=== PATIENT | male | born 1955 | race Caucasian/White ===

== ENCOUNTER 2017-12-22 14:08 | Inpatient (IN) | payer MEDICARE, OTHER ==
[2017-12-22] MEDS ORDERED: Metoprolol tartrate 1 mg/ml 5mL Amp IV STA (14:42)
--- NOTE | 2017-12-22 14:47 | ED Physician Chart ---
ED Chief Complaint/HPI - Patient Information Date Seen:: 12/22/17 Time Seen:: 14:30 Chief Complaint:: Agitation History of Present Illness:: pt presents with agitation and anxiety; pt denies SIs, trauma, H/As, S/T, neck pain, C/P, SOB, Abd. Pain, A/N/V/D/C, fever, chills, or urinary s/s Historian:: Patient, EMS Review:: Nurse's Note Reviewed, Old Chart Reviewed, EMS run form Reviewed ED Review of Systems - Review of Systems General/Constitutional: No fever, No chills, No weight loss, No weakness, No diaphoresis, No edema, No loss of appetite Skin: No skin lesions, No rash, No bruising Head: No headache, No light-headedness Eyes: No loss of vision, No pain, No diplopia ENT: No earache, No nasal drainage, No sore throat, No tinnitus Neck: No neck pain, No swelling, No thyromegaly, No stiffness, No mass noted Cardio Vascular: No chest pain, No palpitations, No PND, No orthopnea, No edema Pulmonary: No SOB, No cough, No sputum, No wheezing GI: No nausea, No vomiting, No diarrhea, No pain, No melena, No hematochezia, No constipation, No hematemesis G/U: No dysuria, No frequency, No hematuria, No nacturia Musculoskeletal: No bone or joint pain, No back pain, No muscle pain Endocrine: No polyuria, No polydipsia Psychiatric: Prior psych history, Depression, Anxiety, No suicidal ideation, No homicidal ideation, No auditory hallucination, No visual hallucination Hematopoietic: No bruising, No lymphadenopathy Allergic/Immuno: No urticaria, No angioedema Neurological: No syncope, No focal symptoms, No weakness, No paresthesia, No headache, No seizure, No dizziness, No confusion, No vertigo ED Past Medical History - Past Medical History Obtainable: Yes Past Medical History: HTN, Dyslipidemia Family History: HTN Social History: Non Smoker, No Alcohol, No Drug Use, Single, Care Facility Surgical History: None Psychiatricy History: Depression, Bipolar Medication: Reviewed ED Physical Exam - Physical Examination General/Constitutional: Awake, Well-developed, well-nourished, Alert, No distress, GCS 15, Non-toxic appearing, Ambulatory Head: Atraumatic Eyes: Lids, conjuctiva normal, PERRL, EOMI Skin: Nl inspection, No rash, No skin lesions, No ecchymosis, Well hydrated, No lymphadenopathy ENMT: External ears, nose nl, TM canals nl, Nasal exam nl, Lips, teeth, gums nl , Oropharynx nl, Tonsils nl Neck: Nontender, Full ROM w/o pain, No JVD, No nuchal rigidity, No bruit, No mass, No stridor Respiratory: Nl effort/Exclusion Other Respiratory comments:: Lungs: + Rales Cardio Vascular: No murmur, gallop, rubs, NL S1 S2, Carotid/Femoral/Distal pulses equal bilaterally Other Cardio Vascular comments:: Irregular Irregular Rhythm GI: No tenderness/rebounding/guarding, No organomegaly, No hernia, Normal BS's, Nondistended, No mass/bruits, No McBurney tenderness, Rectum exam nl : No CVA tenderness Extremities: No tenderness or effusion, Full ROM, normal strength in all extremities, No edema, Normal digits & nails Neuro/Psych: Alert/oriented, DTR's symmetric, Normal sensory exam, Normal motor strength, Judgement/insight normal, Mood normal, Normal gait, No focal deficits Misc: Normal back, No paraspinal tenderness ED Labs/Radiology/EKG Results - Lab Results Comments:: BNP: 1490; Troponin: 0.39; D-Dimer: 1240; Elevated LFTs - Radiology Results Comments:: CXR: CHF - EKG Interpretations EKG Time:: 14:31 Rate & Rhythm: 158; ST/Atrial Fibrillation Comments:: RBBB; non-specific st-t changes ED Septic Shock - . Is Septic Shock (SBP<90, OR Lactate>4 mmol\L) present?: No ED Reassessment (Disposition) - Reassessment Reassessment Condition:: Improved - Diagnosis Diagnosis:: Dx: Atrial Fibrillation; Cardiac Arrythmias; Tachyarythmias; Agitation; Anxiety Reaction; CHF; Myocardial Ischemia; Pulmonary Embolus; DVT; Coagulopathy; Hyponatremia - Aftercare/Follow up Instructions Aftercare/Follow-Up Instructions:: Counseled pt regarding lab results/diagnosis & need follow up, Counseled pt & family regarding lab results/diagnosis & need follow up - Patient Disposition Discharge/Transfer:: Acute Care w/in this hosp Accepting Physician:: Dr. Sánchez Time Called:: 1629 Time Responded:: 16:30 Admitted to:: ICU Spoke to:: Dr. Sánchez Admitting Medical Physician:: Dr. Sánchez Condition at Disposition:: Stable, Improved ED Discharge Plan - Patient Disposition Instructions: Psychosis
[2017-12-22] MEDS ORDERED: Metoprolol tartrate 1 mg/ml 5mL Amp IV ONE (15:11)
[2017-12-22 15:16] LABS: INR 1.66 (0.5-1.4); PROTHROMBIN TIME (TEST) 17.7 SECONDS (9.5-11.5)
[2017-12-22 15:18] LABS: ALB/GLOB RATIO 1.2 (1.0-1.8); ALBUMIN 3.6 gm/dL (4.2-5.5); ALKALINE PHOSPHATASE 75 U/L (34-104); BILIRUBIN,TOTAL 2.2 mg/dL (0.3-1.0); BUN - UREA NITROGEN 20 mg/dL (7-25); CARBON DIOXIDE 25.7 mEq/L (21.0-31.0); CHLORIDE 100 mEq/L (98-107); CHOLESTEROL 108 mg/dL (<200); CREATININE - SERUM 1.2 mg/dL (0.7-1.3); CREATININE KINASE 3237 U/L (30-223); GFR AFRICAN-AMERICAN > 60.0 ml/min (>90); GFR NON AFRICAN-AMERICAN > 60.0 ml/min; GLUCOSE 152 mg/dL (70-105); POTASSIUM SERUM 3.7 mEq/L (3.5-5.1); SGOT 138 U/L (13-39); SGPT/ALT 50 U/L (7-52); SODIUM SERUM 134 mEq/L (136-145); TOTAL PROTEIN,SERUM 6.7 gm/dL (6.0-8.3); TRIGLYCERIDES 96 mg/dL (<150)
[2017-12-22 15:24] LABS: HEMATOCRIT 48.1 % (41.0-60); HEMOGLOBIN 15.8 gm/dL (12-16); MEAN CELL VOLUME 91.2 fl (80-99); MEAN CORPUSCULAR HEMOGLOBIN 29.9 pg (26.0-30.0); MEAN CORPUSCULAR HGB CONC 32.8 pg (28.0-36.0); MEAN PLATELET VOLUME 10.1 fl; PLATELET COUNT 170 Th/cmm (150-400); RED BLOOD COUNT 5.27 Mil/cmm (4.30-5.70); RED CELL DISTRIBUTION WIDTH 13.4 % (11.5-20.0); WHITE BLOOD COUNT 8.9 Th/cmm (4.8-10.8)
[2017-12-22 15:51] LABS: DDIMER QUANT 1240 ng/mL (100-400); HDL -HIGH DENSITY LIPOPROTEIN 36 mg/dL (23-92)
[2017-12-22 15:55] LABS: MANUAL DIFF REQUIRED? YES
[2017-12-22 15:56] LABS: BAND NEUTROPHILE 0 % (0-10); BASOPHIL 0 % (0-3); EOSINOPHIL 1 % (0-5); LYMPHOCYTE 15 % (20-50); MONOCYTE 10 % (2-10); NEUTROPHILS 74 % (40-80); TOTAL CELLS COUNTED 100
[2017-12-22 16:06] LABS: ACETAMINOPHEN < 10.0 ug/mL (10.0-30.0); CHOLESTEROL 110 mg/dL (<200); HDL -HIGH DENSITY LIPOPROTEIN 37 mg/dL (23-92); TRIGLYCERIDES 97 mg/dL (<150)
[2017-12-22 16:31] LABS: SALICYLATES (ASPIRIN) < 25.0 mg/L (30.0-100.0)
[2017-12-22] MEDS ORDERED: IOHEXOL 350mgI/mL 150mL IV ONE (16:42)
[2017-12-22 19:18] LABS: URINE MICROSCOPIC INDICATED? YES; URINE SOURCE CLEAN C
[2017-12-22 19:27] LABS: URINE BLOOD LARGE (NEGATIVE); URINE GLUCOSE (UA) NEGATIVE (NEGATIVE); URINE KETONE NEGATIVE (NEGATIVE); URINE LEUKOCYTE ESTERASE SMALL (NEGATIVE); URINE NITRATE NEGATIVE (NEGATIVE); URINE PROTEIN 100 mg/dL (NEGATIVE)
[2017-12-22 19:46] LABS: URINE CLARITY SLIGHT CLOUDY (CLEAR); URINE COLOR YELLOW; URINE RBC 50-100 /hpf (0-5)
[2017-12-22 19:49] LABS: URINE BACTERIA FEW /hpf (NONE SEEN); URINE EPITHELIAL CELLS OCCASIONAL /lpf (FEW); URINE WBC 25-50 /hpf (0-5)
[2017-12-22 19:50] LABS: AMPHETAMINE URINE NEGATIVE (NEGATIVE); BARBITURATES URINE NEGATIVE (NEGATIVE); BENZODIAZEPINES QUAL URINE NEGATIVE (NEGATIVE); CANNABINOID THC NEGATIVE (NEGATIVE); COCAINE METABOLITE QUAL URINE NEGATIVE (NEGATIVE); METHADONE URINE NEGATIVE (NEGATIVE); METHAMPHETAMINES QUAL URINE NEGATIVE (NEGATIVE); OPIATES (MORPHINE) QUAL. URINE POSITIVE (NEGATIVE); PHENCYCLIDINE (PCP) URINE NEGATIVE (NEGATIVE); TRICYCLICS (TCA) QUAL. URINE NEGATIVE (NEGATIVE); URINE BILIRUBIN SMALL (NEGATIVE)
[2017-12-22 20:00] LABS: A1C % 8.1 % (4.0-6.0)
[2017-12-22] MEDS ORDERED: Magnesium Hydroxide (MOM) 30 mL UDC PO PRN (22:46)
[2017-12-22] MEDS: Sodium Chloride 0.9% 1,000 ML IV SCH (22:56)
[2017-12-23] MEDS: INSULIN ASPART SLIDING SCALE 100 UNITS/ML UNIT SUBQ SCH ×5 (00:19→23:27)
[2017-12-23 05:02] LABS: % BASOPHILS 0.4 % (0.0-2.0); % LYMPHOCYTES 20.1 % (20.0-50.0); % MONOCYTES 11.1 % (2.0-10.0); % NEUTROPHILS 65.4 % (40.0-80.0); EOSINOPHILE ABSOLUTE 0.2 Th/cmm (0.1-0.4); HEMATOCRIT 45.3 % (41.0-60); HEMOGLOBIN 14.8 gm/dL (12-16); LYMPHOCYTE ABSOLUTE 1.5 Th/cmm (1.5-3.0); MEAN CELL VOLUME 91.7 fl (80-99); MEAN CORPUSCULAR HEMOGLOBIN 29.9 pg (26.0-30.0); MEAN CORPUSCULAR HGB CONC 32.6 pg (28.0-36.0); MEAN PLATELET VOLUME 9.3 fl; MONOCYTE ABSOLUTE 0.9 Th/cmm (0.3-1.0); NEUTROPHILE ABSOLUTE 5.1 Th/cmm (1.8-8.0); PLATELET COUNT 187 Th/cmm (150-400); RED BLOOD COUNT 4.94 Mil/cmm (4.30-5.70); RED CELL DISTRIBUTION WIDTH 13.1 % (11.5-20.0); WHITE BLOOD COUNT 7.7 Th/cmm (4.8-10.8)
[2017-12-23 05:29] LABS: ALB/GLOB RATIO 1.2 (1.0-1.8); ALBUMIN 3.2 gm/dL (4.2-5.5); ALKALINE PHOSPHATASE 70 U/L (34-104); BILIRUBIN,TOTAL 1.4 mg/dL (0.3-1.0); BUN - UREA NITROGEN 18 mg/dL (7-25); CALCIUM SERUM 8.6 mg/dL (8.6-10.3); CARBON DIOXIDE 21.8 mEq/L (21.0-31.0); CHLORIDE 103 mEq/L (98-107); CREATININE - SERUM 1.1 mg/dL (0.7-1.3); GFR AFRICAN-AMERICAN > 60.0 ml/min (>90); GFR NON AFRICAN-AMERICAN > 60.0 ml/min; GLUCOSE 166 mg/dL (70-105); POTASSIUM SERUM 3.8 mEq/L (3.5-5.1); SGOT 118 U/L (13-39); SGPT/ALT 48 U/L (7-52); SODIUM SERUM 134 mEq/L (136-145); TOTAL PROTEIN,SERUM 5.9 gm/dL (6.0-8.3)
--- NOTE | 2017-12-23 08:16 | Diagnostic Imaging Report ---
CHEST X-RAY: AP view INDICATION: pain COMPARISON: None FINDINGS: Left chest wall pacer is noted with leads in the region right atrium and right ventricle. Left basal density is noted. Cardiomegaly is noted. The osseous structures are intact. IMPRESSION: Left basal density which may be due to a small left effusion. Pneumonia of the left lung base cannot be excluded. Cardiomegaly. Pacemaker noted.
--- NOTE | 2017-12-23 08:18 | Diagnostic Imaging Report ---
Bilateral lower extremity DVT study HISTORY: Pain COMPARISON: None Technique: Longitudinal and transverse sonographic images of the bilateral lower extremity veins were obtained with doppler analysis. FINDINGS: Patient was combative, limiting the examination. There was nonvisualization of the bilateral popliteal veins due to patient and combative. The remaining veins of bilateral lower extremity are patent with no evidence of DVT formation. IMPRESSION: The bilateral popliteal veins were not able to be imaged as patient was combative during this portion of the procedure. Otherwise no evidence of DVT within the bilateral lower extremity venous system.
[2017-12-23] MEDS: Multivitamin w/ Minerals Tab PO SCH (08:26)
--- NOTE | 2017-12-23 08:29 | Diagnostic Imaging Report ---
CT Chest PE study Indication: Shortness of breath rule out PE Comparison: Chest x-ray the same day, Technique: Axial images were obtained from the base of the neck to the upper abdomen, following administration of IV contrast, PE protocol. Multiplanar reconstructions were made. total DLP: 383, [id number] FINDINGS: Left chest wall pacemaker is noted with leads in the region of the right atrium and right ventricle. Streak artifacts from patient's pacemaker does limit the examination. There is no evidence of mediastinal lymphadenopathy. Cardiomegaly is noted with small to moderate pericardial effusion. No evidence of an aneurysm. There is no evidence of pulmonary embolus. Evaluation of the lungs demonstrates mild groundglass densities throughout the lungs with minimal left basal infiltrates . Trace right effusion right basal passive atelectatic and consolidative changes are noted. Mild chronic lung changes are also noted. The upper abdomen demonstrates a 2-cm left renal cyst. Nonspecific bilateral perinephric inflammatory changes are noted. Mild distended gallbladder is noted. Degenerative changes of the spine are noted. IMPRESSION: No evidence of a pulmonary embolus. Mild groundglass density lungs with minimal left basal infiltrates. Trace right pleural effusion with right basal passive atelectasis is noted. Please correlate clinically for possible mild CHF. Underlying pneumonia cannot be excluded. Cardiomegaly with small to moderate-sized pericardial effusion. A left chest wall pacemaker apparatus is also noted. Moderate atherosclerotic vascular disease. Reflux of intravenous contrast into the IVC which may be secondary heart failure. Please correlate with clinical findings. Left renal cyst. Nonspecific perinephric inflammatory changes. Mildly distended gallbladder. No radiopaque gallstones identified. Consider follow-up ultrasound if indicated.
[2017-12-23] MEDS ORDERED: Atorvastatin Calcium 10 MG TAB PO SCH (09:00)
[2017-12-23] MEDS ORDERED: Insulin Detemir 100 units/mL 10mL Vial SUBQ SCH (09:00)
--- NOTE | 2017-12-23 09:04 | History and Physical ---
History of Present Illness - HPI Chief Complaint: Agitation HPI: Patient was send to ER from SNF to be evaluated for agitation and be place in [place]/psy[place], but during ER evaluation was found A-fib, elevated troponin, BNP and D-dimers, sugesting a possible LA, Acute CHF, and possible PE. 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[employer]GER: Report: Seizure, Other (Hx of CVA) GI: Report: Other (Chron's disease) Psych: Report: Anxiety Rheumatologic: Report: No pertinent Hx Infectious Disease: Report: No Pertinent Hx Renal/: Report: Other (Chronic armas catheter use) Endocrine: Report: Diabetes Dermatology: Report: No Pertinent Hx - Past Surgical History Past Surgical History: No pertinent Hx Social History Smoke: No Alcohol: None Drugs: None Lives: Long Term Domestic Violence: Negative - Medications Home Medications: Home Medication Medication Instructions Recorded Type Acetaminophen [Tylenol Extra 500 mg PO TID PRN 12/22/17 History Strength] Acetaminophen [Tylenol] 650 mg PO Q6HR PRN 12/22/17 History Atorvastatin Calcium [Lipitor] 10 mg PO DAILY 12/22/17 History Dextran 70/Hypromellose 1 each OP QID PRN 12/22/17 History [Artificial Tears] Docusate Sodium [Colace] 100 mg PO BID 12/22/17 History Hydrocodone/APAP 5mg/325mg [[place] 1 tab PO Q6H PRN 12/22/17 History 5mg/325mg] Insulin Glargine, Recombinan 10 units SUBQ QAM 12/22/17 History [Lantus] Insulin Human Regular [NovoLIN R] 0 units SUBQ TID 12/22/17 History Magnesium Hydroxide [Milk of 30 ml PO DAILY PRN 12/22/17 History Magnesia] Multivitamin w/ Minerals 1 tab PO DAILY 12/22/17 History [Theragran M] Nitroglycerin 0.4 mg SL Q5MIN PRN 12/22/17 History PARoxetine [Paxil] 10 mg PO DAILY 12/22/17 History Promethazine [Phenergan] 1 tbs PO TID PRN 12/22/17 History Rivaroxaban [Xarelto] 10 mg PO DAILY 12/22/17 History Tamsulosin [Flomax] 0.4 mg PO HS 12/22/17 History - Allergies Allergies/Adverse Reactions: Allergies Allergy/AdvReac Type Severity Reaction Status Date / Time No Known Allergies Allergy Verified 12/22/17 15:08 Review of Systems - Review of Systems Constitutional: Report: Weakness Eyes: Report: No Significant ENT: Report: No Significant Respiratory: Report: Other (O2 desaturation) Cardiovascular: Report: Palpitations Gastrointestinal: Report: No Significant Genitourinary: Report: Other (Armas catheter ) Musculoskeletal: Report: Other (Muscle pain) Skin: Report: No Significant Neurological: Report: Weakness Physical Exam - Physical Exam HEENT: Report: Ears Nose Throat within normal limits Neck: Report: Within normal limits Cardiovascular Systems: Report: Irregular rhythm was noted Respiratory: Report: Rhonchi Abdomen: Report: Non-tender to palpation Back: Report: Inspection of back is within normal limits. Extremities: Report: Non-tender to palpation. Skin: Report: Color of skin is within normal limits, Warm, Dry Neuro/Psych: Report: Other (patient is anxious) - Lab Results All Lab Results last 24 hours: Laboratory Results - last 24 hr 12/22/17 12/22/17 12/22/17 14:50 14:50 14:50 WBC 8.9 RBC 5.27 Hgb 15.8 Hct 48.1 MCV 91.2 MCH 29.9 MCHC Differential 32.8 RDW 13.4 Plt Count 170 MPV 10.1 Neutrophils % Band Neutrophils % 0 Lymphocytes % Monocytes % Eosinophils % Basophils % Neutrophils (Manual) 74 Lymphocytes 15 L Monocytes 10 Eosinophils 1 Basophils 0 Target Cells PT 17.7 H INR 1.66 H D-Dimer 1240 H Sodium 134 L Potassium 3.7 Chloride 100 Carbon Dioxide 25.7 Anion Gap 12.0 BUN 20 Creatinine 1.2 Est GFR ( Amer) > 60.0 Est GFR (Non-Af Amer) > 60.0 BUN/Creatinine Ratio 16.7 Glucose 152 H Hemoglobin A1c % Calcium 9.0 Total Bilirubin 2.2 H AST 138 H ALT 50 Alkaline Phosphatase 75 Creatine Kinase 3237 H CK-MB (CK-2) 21.8 H Troponin I B-Natriuretic Peptide Total Protein 6.7 Albumin 3.6 L Globulin 3.1 Albumin/Globulin Ratio 1.2 Triglycerides 96 Cholesterol 108 LDL Cholesterol Direct 59 L HDL Cholesterol 36 TSH Urine Source Urine Color Urine Clarity Urine pH Ur Specific [place] Urine Protein Urine Glucose (UA) Urine Ketones Urine Blood Urine Nitrate Urine Bilirubin Urine Urobilinogen Ur Leukocyte Esterase Urine RBC Urine WBC Ur Epithelial Cells Urine Bacteria Salicylates Urine Opiates Screen Urine Methadone Screen Acetaminophen Ur Barbiturates Screen Ur Tricyclics Screen Ur Phencyclidine Scrn Amphetamines Screen U Methamphetamines Scrn U Benzodiazepines Scrn U Cocaine Metab Screen U Cannabinoids Screen Ethyl Alcohol 12/22/17 12/22/17 12/22/17 14:50 14:50 14:50 WBC RBC Hgb Hct MCV MCH MCHC Differential RDW Plt Count MPV Neutrophils % Band Neutrophils % Lymphocytes % Monocytes % Eosinophils % Basophils % Neutrophils (Manual) Lymphocytes Monocytes Eosinophils Basophils Target Cells PT INR D-Dimer Sodium Potassium Chloride Carbon Dioxide Anion Gap BUN Creatinine Est GFR ( Amer) Est GFR (Non-Af Amer) BUN/Creatinine Ratio Glucose Hemoglobin A1c % Calcium Total Bilirubin AST ALT Alkaline Phosphatase Creatine Kinase CK-MB (CK-2) Troponin I 0.39 H* B-Natriuretic Peptide 1490.0 H Total Protein Albumin Globulin Albumin/Globulin Ratio Triglycerides 97 Cholesterol 110 LDL Cholesterol Direct 60 L HDL Cholesterol 37 TSH Urine Source Urine Color Urine Clarity Urine pH Ur Specific [place] Urine Protein Urine Glucose (UA) Urine Ketones Urine Blood Urine Nitrate Urine Bilirubin Urine Urobilinogen Ur Leukocyte Esterase Urine RBC Urine WBC Ur Epithelial Cells Urine Bacteria Salicylates < 25.0 L Urine Opiates Screen Urine Methadone Screen Acetaminophen < 10.0 L Ur Barbiturates Screen Ur Tricyclics Screen Ur Phencyclidine Scrn Amphetamines Screen U Methamphetamines Scrn U Benzodiazepines Scrn U Cocaine Metab Screen U Cannabinoids Screen Ethyl Alcohol < 10 12/22/17 12/22/17 12/22/17 14:50 14:50 16:15 WBC RBC Hgb Hct MCV MCH MCHC Differential RDW Plt Count MPV Neutrophils % Band Neutrophils % Lymphocytes % Monocytes % Eosinophils % Basophils % Neutrophils (Manual) Lymphocytes Monocytes Eosinophils Basophils Target Cells PT INR D-Dimer Sodium Potassium Chloride Carbon Dioxide Anion Gap BUN Creatinine Est GFR ( Amer) Est GFR (Non-Af Amer) BUN/Creatinine Ratio Glucose Hemoglobin A1c % 8.1 H Calcium Total Bilirubin AST ALT Alkaline Phosphatase Creatine Kinase CK-MB (CK-2) Troponin I B-Natriuretic Peptide Total Protein Albumin Globulin Albumin/Globulin Ratio Triglycerides Cholesterol LDL Cholesterol Direct HDL Cholesterol TSH 4.06 Urine Source CLEAN C Urine Color YELLOW Urine Clarity SLIGHT CLOUDY Urine pH 8.0 Ur Specific [place] 1.010 Urine Protein 100 H Urine Glucose (UA) NEGATIVE Urine Ketones NEGATIVE Urine Blood LARGE H Urine Nitrate NEGATIVE Urine Bilirubin SMALL H Urine Urobilinogen 2.0 Ur Leukocyte Esterase SMALL H Urine RBC 50-100 H Urine WBC 25-50 H Ur Epithelial Cells OCCASIONAL Urine Bacteria FEW Salicylates Urine Opiates Screen Urine Methadone Screen Acetaminophen Ur Barbiturates Screen Ur Tricyclics Screen Ur Phencyclidine Scrn Amphetamines Screen U Methamphetamines Scrn U Benzodiazepines Scrn U Cocaine Metab Screen U Cannabinoids Screen Ethyl Alcohol 12/22/17 12/23/17 12/23/17 16:15 04:50 04:50 WBC 7.7 RBC 4.94 Hgb 14.8 Hct 45.3 MCV 91.7 MCH 29.9 MCHC Differential 32.6 RDW 13.1 Plt Count 187 MPV 9.3 Neutrophils % 65.4 Band Neutrophils % Lymphocytes % 20.1 Monocytes % 11.1 H Eosinophils % 3.0 Basophils % 0.4 Neutrophils (Manual) Lymphocytes Monocytes Eosinophils Basophils Target Cells PT INR D-Dimer Sodium 134 L Potassium 3.8 Chloride 103 Carbon Dioxide 21.8 Anion Gap 13.0 BUN 18 Creatinine 1.1 Est GFR ( Amer) > 60.0 Est GFR (Non-Af Amer) > 60.0 BUN/Creatinine Ratio 16.4 Glucose 166 H Hemoglobin A1c % Calcium 8.6 Total Bilirubin 1.4 H AST 118 H ALT 48 Alkaline Phosphatase 70 Creatine Kinase CK-MB (CK-2) Troponin I B-Natriuretic Peptide Total Protein 5.9 L Albumin 3.2 L Globulin 2.7 Albumin/Globulin Ratio 1.2 Triglycerides Cholesterol LDL Cholesterol Direct HDL Cholesterol TSH Urine Source Urine Color Urine Clarity Urine pH Ur Specific [place] Urine Protein Urine Glucose (UA) Urine Ketones Urine Blood Urine Nitrate Urine Bilirubin Urine Urobilinogen Ur Leukocyte Esterase Urine RBC Urine WBC Ur Epithelial Cells Urine Bacteria Salicylates Urine Opiates Screen POSITIVE H Urine Methadone Screen NEGATIVE Acetaminophen Ur Barbiturates Screen NEGATIVE Ur Tricyclics Screen NEGATIVE Ur Phencyclidine Scrn NEGATIVE Amphetamines Screen NEGATIVE U Methamphetamines Scrn NEGATIVE U Benzodiazepines Scrn NEGATIVE U Cocaine Metab Screen NEGATIVE U Cannabinoids Screen NEGATIVE Ethyl Alcohol 12/23/17 04:50 WBC RBC Hgb Hct MCV MCH MCHC Differential RDW Plt Count MPV Neutrophils % Band Neutrophils % Lymphocytes % Monocytes % Eosinophils % Basophils % Neutrophils (Manual) Lymphocytes Monocytes Eosinophils Basophils Target Cells PT INR D-Dimer Sodium Potassium Chloride Carbon Dioxide Anion Gap BUN Creatinine Est GFR ( Amer) Est GFR (Non-Af Amer) BUN/Creatinine Ratio Glucose Hemoglobin A1c % Calcium Total Bilirubin AST ALT Alkaline Phosphatase Creatine Kinase CK-MB (CK-2) Troponin I 0.29 H* D B-Natriuretic Peptide Total Protein Albumin Globulin Albumin/Globulin Ratio Triglycerides Cholesterol LDL Cholesterol Direct HDL Cholesterol TSH Urine Source Urine Color Urine Clarity Urine pH Ur Specific [place] Urine Protein Urine Glucose (UA) Urine Ketones Urine Blood Urine Nitrate Urine Bilirubin Urine Urobilinogen Ur Leukocyte Esterase Urine RBC Urine WBC Ur Epithelial Cells Urine Bacteria Salicylates Urine Opiates Screen Urine Methadone Screen Acetaminophen Ur Barbiturates Screen Ur Tricyclics Screen Ur Phencyclidine Scrn Amphetamines Screen U Methamphetamines Scrn U Benzodiazepines Scrn U Cocaine Metab Screen U Cannabinoids Screen Ethyl Alcohol - Assessment Assessment: Current Active Problems Problem Status Onset AGITATION AND DEPRESSION Acute Patient is awake, cam in no acute distres. Troponin improved, BNP continue high , Chest CT shows lung infiltration, No PE. Dx: A-Fib, LA, CHF exacerbation, Anxiety, pacemaker in place. - Plan Plan: Patient is in IV NS, Carvedilol, Xarelto, Captopril, Insulin sliding scale, Lasix, continue with SNF meds. Consult with Cardio and IM requested
[2017-12-23] MEDS: Sodium Chloride 0.9% 1,000 ML IV SCH (09:55)
[2017-12-23] MEDS: Levofloxacin 500mg/100mL 500 MG/100 ML BAG IV SCH (10:12)
--- NOTE | 2017-12-23 20:38 | Consultation ---
DATE OF CONSULTATION: 12/23/2017 PSYCHIATRIC CONSULTATION PHYSICIAN REQUESTING CONSULTATION: Dr. Sánchez. REASON FOR CONSULTATION: Agitation. HISTORY OF PRESENT ILLNESS: This patient is a 62-year-old male, resident of [facility]. Information obtained by directly interviewing the patient as well as reviewing the admission papers and they are reliable. This patient has been transferred from [facility] in view of his acute agitation. The patient has been seen in the Emergency Room and has been found to have atrial fibrillation and the patient has been currently admitted to the ICU for treatment of his atrial fibrillation and a psychiatric consultation is called to address the issue of the agitated behavior. Staff was spoken to. The patient is interviewed. The patient has been getting easily irritable and angry and is stating that the food is no good and he needs to get a couple of more extra puddings. The patient has been going on a tangent. Sleep and appetite prior to the hospitalization are reported to be poor. PAST PSYCHIATRIC HISTORY: Details are not known. MEDICAL HISTORY: Significant for the patient having hypertension, diabetes mellitus, Crohn's disease, seizure disorder and CVA in the past. The patient at this time is being treated for congestive heart failure and atrial fibrillation. SUBSTANCE ABUSE HISTORY: Details are not known. LEGAL PROBLEMS: None at this time. STRENGTHS AND ASSETS: The patient is motivated. The patient is very agitated at this time and is not able give much information. MENTAL STATUS EXAMINATION: The patient is a 62-year-old, looking older than stated age, superficially cooperative. Eye contact is poor. Mood is irritable. Affect is constricted. Insight and judgment is noted to be still impaired. Impulse control seems to be limited. The patient is screaming and yelling and asking for pudding all the time. The patient has no insight into his illness. Coping skills are noted to be extremely poor. The patient is getting easily agitated when I am trying to calm him down, that the staff are looking into this pudding. The patient is alert and aware that he is in the hospital, but has no insight into his illness. DIAGNOSTIC IMPRESSION: 1. Major depressive disorder by history. 1B. Rule out psychosis. PLAN: To continue the patient with the current medications and the use of lorazepam on a p.r.n. Once medically cleared, the patient is going to be possibly transferred to the Geropsychiatric Unit for further care. JOB# [id number]
[2017-12-24] MEDS: Sodium Chloride 0.9% 1,000 ML IV SCH ×2 (02:00→12:58)
[2017-12-24 05:11] LABS: MEAN PLATELET VOLUME 9.5 fl; RED BLOOD COUNT 4.64 Mil/cmm (4.30-5.70); WHITE BLOOD COUNT 9.7 Th/cmm (4.8-10.8)
[2017-12-24 05:24] LABS: % EOSINOPHILS 3.3 % (0.0-5.0); % LYMPHOCYTES 17.7 % (20.0-50.0); % MONOCYTES 10.5 % (2.0-10.0); % NEUTROPHILS 67.5 % (40.0-80.0); BASOPHILE ABSOLUTE 0.1 Th/cumm (0-0.2); EOSINOPHILE ABSOLUTE 0.3 Th/cmm (0.1-0.4); HEMATOCRIT 42.4 % (41.0-60); HEMOGLOBIN 13.8 gm/dL (12-16); LYMPHOCYTE ABSOLUTE 1.7 Th/cmm (1.5-3.0); MEAN CELL VOLUME 91.4 fl (80-99); MEAN CORPUSCULAR HEMOGLOBIN 29.8 pg (26.0-30.0); MEAN CORPUSCULAR HGB CONC 32.6 pg (28.0-36.0); NEUTROPHILE ABSOLUTE 6.6 Th/cmm (1.8-8.0); PLATELET COUNT 180 Th/cmm (150-400); RED CELL DISTRIBUTION WIDTH 13.3 % (11.5-20.0)
[2017-12-24 05:33] LABS: ALB/GLOB RATIO 1.2 (1.0-1.8); ALBUMIN 3.1 gm/dL (4.2-5.5); ALKALINE PHOSPHATASE 78 U/L (34-104); ANION GAP 11.8 (7.0-16.0); BILIRUBIN,TOTAL 0.9 mg/dL (0.3-1.0); BUN - UREA NITROGEN 15 mg/dL (7-25); CALCIUM SERUM 8.4 mg/dL (8.6-10.3); CARBON DIOXIDE 25.1 mEq/L (21.0-31.0); CHLORIDE 102 mEq/L (98-107); CREATININE - SERUM 1.3 mg/dL (0.7-1.3); GFR AFRICAN-AMERICAN > 60.0 ml/min (>90); GFR NON AFRICAN-AMERICAN 59.3 ml/min; MAGNESIUM 1.5 mg/dL (1.9-2.7); POTASSIUM SERUM 3.9 mEq/L (3.5-5.1); SGOT 115 U/L (13-39); SGPT/ALT 46 U/L (7-52); SODIUM SERUM 135 mEq/L (136-145); TOTAL PROTEIN,SERUM 5.7 gm/dL (6.0-8.3)
[2017-12-24 05:45] LABS: GLUCOSE 75 mg/dL (70-105)
[2017-12-24] MEDS: INSULIN ASPART SLIDING SCALE 100 UNITS/ML UNIT SUBQ SCH ×4 (06:13→23:50)
[2017-12-24] MEDS: Multivitamin w/ Minerals Tab PO SCH (08:19)
--- NOTE | 2017-12-24 08:26 | Consultation ---
DATE OF CONSULTATION: 12/24/[address] Garibay. HISTORY OF PRESENT ILLNESS: This is a 62-year-old male patient who came to the hospital because of agitation. The patient on admission was found to have atrial fibrillation, congestive heart failure, slightly elevated troponin level, and hence, the patient is admitted to ICU and Cardiology consult is requested. The patient has no complaint of chest pain. The patient does have some shortness of breath. PAST MEDICAL HISTORY: Atrial fibrillation, CVA with left-sided weakness, seizure disorder, Crohn's disease, old myocardial infarction, diabetes mellitus type 2, hypertension, and sick sinus syndrome with pacemaker. FAMILY HISTORY: Unremarkable. SOCIAL HISTORY: No history of smoking or alcohol abuse. ALLERGIES: No known allergies. PHYSICAL EXAMINATION: VITAL SIGNS: Blood pressure 110/70, pulse 120 regular, and respirations 20. HEAD: Normocephalic. No lumps or bumps. EYES: Pupils equal, reactive to light. Fundi show AV nicking, sclerae white, conjunctivae pink. NECK: Carotid 2+. Normal upstroke. JVD 10 cm above sternal angle. Thyroid not palpable. Lymph nodes not palpable. CHEST: Shows increased AP diameter. No kyphosis, scoliosis. LUNGS: Bilateral rales. Decreased breath sounds both the bases. HEART: PMI sixth intercostal space with lateral to midclavicular line. S1 irregular. S2, S3, S4, soft systolic murmur. ABDOMEN: Soft. Liver, spleen not palpable. No organomegaly. Bowel sounds active. NEUROLOGIC: The patient has left side weakness, upper and lower extremity. CLINICAL IMPRESSION: Congestive heart failure. We will do echocardiogram to evaluate left ventricular function, atrial fibrillation with rapid ventricular response, cerebrovascular accident with left-sided weakness, seizure disorder, chronic Crohn's disease, old myocardial infarction, diabetes mellitus type 2, and hypertension. PLAN: The patient to get echocardiogram, diuretics, we will start the patient on amiodarone as the patient's blood pressure is 100 systolic. JOB# [id number]
--- NOTE | 2017-12-24 08:35 | General Progress Note ---
Subjective - Review of Systems Service Date: 12/24/17 Subjective: I want food Objective - Results Result Diagrams: 12/24/17 04:45 12/24/17 04:45 Recent Labs: Laboratory Last Values WBC 9.7 Th/cmm (4.8-10.8) 12/24/17 04:45 RBC 4.64 Mil/cmm (4.30-5.70) 12/24/17 04:45 Hgb 13.8 gm/dL (12-16) 12/24/17 04:45 Hct 42.4 % (41.0-60) 12/24/17 04:45 MCV 91.4 fl (80-99) 12/24/17 04:45 MCH 29.8 pg (26.0-30.0) 12/24/17 04:45 MCHC Differential 32.6 pg (28.0-36.0) 12/24/17 04:45 RDW 13.3 % (11.5-20.0) 12/24/17 04:45 Plt Count 180 Th/cmm (150-400) 12/24/17 04:45 MPV 9.5 fl 12/24/17 04:45 Neutrophils % 67.5 % (40.0-80.0) 12/24/17 04:45 Band Neutrophils % 0 % (0-10) 12/22/17 14:50 Lymphocytes % 17.7 % (20.0-50.0) L 12/24/17 04:45 Monocytes % 10.5 % (2.0-10.0) H 12/24/17 04:45 Eosinophils % 3.3 % (0.0-5.0) 12/24/17 04:45 Basophils % 1.0 % (0.0-2.0) 12/24/17 04:45 Neutrophils (Manual) 74 % (40-80) 12/22/17 14:50 Lymphocytes 15 % (20-50) L 12/22/17 14:50 Monocytes 10 % (2-10) 12/22/17 14:50 Eosinophils 1 % (0-5) 12/22/17 14:50 Basophils 0 % (0-3) 12/22/17 14:50 Target Cells 12/22/17 14:50 PT 17.7 SECONDS (9.5-11.5) H 12/22/17 14:50 INR 1.66 (0.5-1.4) H 12/22/17 14:50 D-Dimer 1240 ng/mL (100-400) H 12/22/17 14:50 Sodium 135 mEq/L (136-145) L 12/24/17 04:45 Potassium 3.9 mEq/L (3.5-5.1) 12/24/17 04:45 Chloride 102 mEq/L (98-107) 12/24/17 04:45 Carbon Dioxide 25.1 mEq/L (21.0-31.0) 12/24/17 04:45 Anion Gap 11.8 (7.0-16.0) 12/24/17 04:45 BUN 15 mg/dL (7-25) 12/24/17 04:45 Creatinine 1.3 mg/dL (0.7-1.3) 12/24/17 04:45 Est GFR ( Amer) > 60.0 ml/min (>90) 12/24/17 04:45 Est GFR (Non-Af Amer) 59.3 ml/min 12/24/17 04:45 BUN/Creatinine Ratio 11.5 12/24/17 04:45 Glucose 75 mg/dL (70-105) D 12/24/17 04:45 POC Glucose 157 MG/DL (70 - 105) H 12/23/17 23:23 Hemoglobin A1c % 8.1 % (4.0-6.0) H 12/22/17 14:50 Calcium 8.4 mg/dL (8.6-10.3) L 12/24/17 04:45 Magnesium 1.5 mg/dL (1.9-2.7) L 12/24/17 04:45 Total Bilirubin 0.9 mg/dL (0.3-1.0) 12/24/17 04:45 AST 115 U/L (13-39) H 12/24/17 04:45 ALT 46 U/L (7-52) 12/24/17 04:45 Alkaline Phosphatase 78 U/L (34-104) 12/24/17 04:45 Creatine Kinase 3237 U/L (30-223) H 12/22/17 14:50 CK-MB (CK-2) 21.8 ng/mL (0.6-6.3) H 12/22/17 14:50 Troponin I 0.29 ng/mL (0.01-0.05) H* D 12/23/17 04:50 B-Natriuretic Peptide 827.0 pg/mL (5.0-100.0) H 12/24/17 04:45 Total Protein 5.7 gm/dL (6.0-8.3) L 12/24/17 04:45 Albumin 3.1 gm/dL (4.2-5.5) L 12/24/17 04:45 Globulin 2.6 gm/dL 12/24/17 04:45 Albumin/Globulin Ratio 1.2 (1.0-1.8) 12/24/17 04:45 Triglycerides 97 mg/dL (<150) 12/22/17 14:50 Cholesterol 110 mg/dL (<200) 12/22/17 14:50 LDL Cholesterol Direct 60 mg/dL (75-193) L 12/22/17 14:50 HDL Cholesterol 37 mg/dL (23-92) 12/22/17 14:50 TSH 4.06 uIU/ml (0.34-5.60) 12/22/17 14:50 Urine Source CLEAN C 12/22/17 16:15 Urine Color YELLOW 12/22/17 16:15 Urine Clarity SLIGHT CLOUDY (CLEAR) 12/22/17 16:15 Urine pH 8.0 (4.6 - 8.0) 12/22/17 16:15 Ur Specific [place] 1.010 (1.005-1.030) 12/22/17 16:15 Urine Protein 100 mg/dL (NEGATIVE) H 12/22/17 16:15 Urine Glucose (UA) NEGATIVE mg/dL (NEGATIVE) 12/22/17 16:15 Urine Ketones NEGATIVE mg/dL (NEGATIVE) 12/22/17 16:15 Urine Blood LARGE (NEGATIVE) H 12/22/17 16:15 Urine Nitrate NEGATIVE (NEGATIVE) 12/22/17 16:15 Urine Bilirubin SMALL (NEGATIVE) H 12/22/17 16:15 Urine Urobilinogen 2.0 E.U./dL (0.2 - 1.0) 12/22/17 16:15 Ur Leukocyte Esterase SMALL (NEGATIVE) H 12/22/17 16:15 Urine RBC 50-100 /hpf (0-5) H 12/22/17 16:15 Urine WBC 25-50 /hpf (0-5) H 12/22/17 16:15 Ur Epithelial Cells OCCASIONAL /lpf (FEW) 12/22/17 16:15 Urine Bacteria FEW /hpf (NONE SEEN) 12/22/17 16:15 Salicylates < 25.0 mg/L (30.0-100.0) L 12/22/17 14:50 Urine Opiates Screen POSITIVE (NEGATIVE) H 12/22/17 16:15 Urine Methadone Screen NEGATIVE (NEGATIVE) 12/22/17 16:15 Acetaminophen < 10.0 ug/mL (10.0-30.0) L 12/22/17 14:50 Ur Barbiturates Screen NEGATIVE (NEGATIVE) 12/22/17 16:15 Ur Tricyclics Screen NEGATIVE (NEGATIVE) 12/22/17 16:15 Ur Phencyclidine Scrn NEGATIVE (NEGATIVE) 12/22/17 16:15 Amphetamines Screen NEGATIVE (NEGATIVE) 12/22/17 16:15 U Methamphetamines Scrn NEGATIVE (NEGATIVE) 12/22/17 16:15 U Benzodiazepines Scrn NEGATIVE (NEGATIVE) 12/22/17 16:15 U Cocaine Metab Screen NEGATIVE (NEGATIVE) 12/22/17 16:15 U Cannabinoids Screen NEGATIVE (NEGATIVE) 12/22/17 16:15 Ethyl Alcohol < 10 mg/dL (0-10) 12/22/17 14:50 RPR NONREACTIVE (NONREACTIVE) 12/22/17 14:50 - Physical Exam Vitals and I&O: Vital Signs Temp 97.2 F 12/24/17 06:00 Pulse 120 12/24/17 08:19 Resp 20 12/24/17 06:00 BP 126/93 12/24/17 08:19 Pulse Ox 100 12/24/17 06:00 Intake & Output 12/23/17 12/24/17 12/24/17 18:59 06:59 18:59 Intake Total 1273.75 1300 Output Total 1350 800 Balance -76.25 500 Weight (lbs) 60.781 kg 60.781 kg Intake: Intake, IV Amount 923.75 1000 Levofloxacin 500mg/100mL 100 500 mg In 100 ml @ 100 mls/hr IV Q24HR COUNT INCLUDES THE [facility] Rx#: [id number] Sodium Chloride 0.9% 1, 823.75 1000 000 ml @ 75 mls/hr IV . [id number] COUNT INCLUDES THE [facility] Rx#:[id number] Oral 350 300 Output: Urine 1350 800 Other: # Bowel Movements 0 Weight Source Bedscale Bedscale Active Medications: Current Medications Acetaminophen (Tylenol) 650 mg PO Q6HR PRN PRN Reason: MILD PAIN Stop: 02/20/18 22:45 Acetaminophen/Hydrocodone Bitart ([place] 5mg/325mg) 1 tab PO Q6H PRN PRN Reason: PAIN Stop: 02/20/18 22:45 Amiodarone HCl (Cordarone) 200 mg PO BID COUNT INCLUDES THE [facility] Stop: 02/21/18 16:59 Last Admin: 12/24/17 08:18 Dose: 200 mg Aspirin (Ecotrin) 81 mg PO DAILY COUNT INCLUDES THE [facility] Stop: 02/21/18 09:59 Last Admin: 12/24/17 08:19 Dose: 81 mg Carvedilol (Coreg) 6.25 mg PO BID COUNT INCLUDES THE [facility] Stop: 02/21/18 09:59 Last Admin: 12/24/17 08:19 Dose: 6.25 mg Docusate Sodium (Colace) 100 mg PO BID COUNT INCLUDES THE [facility] Stop: 02/21/18 08:59 Last Admin: 12/24/17 08:19 Dose: 100 mg Furosemide (Lasix) 40 mg IVP DAILY COUNT INCLUDES THE [facility] Stop: 02/21/18 09:59 Last Admin: 12/24/17 08:19 Dose: 40 mg Sodium Chloride (Nacl 0.9%) 1,000 mls @ 75 mls/hr IV .[id number] COUNT INCLUDES THE [facility] Stop: 02/20/18 19:59 Last Admin: 12/24/17 02:00 Dose: 75 mls/hr Levofloxacin (Levaquin Pb) 500 mg in 100 mls @ 100 mls/hr IV Q24HR COUNT INCLUDES THE [facility] Stop: 02/21/18 09:59 Last Infusion: 12/23/17 11:15 Dose: Infused Insulin Aspart (Novolog Insulin Sliding Scale) 0 units SUBQ Q6HR COUNT INCLUDES THE [facility]; Protocol Stop: 02/21/18 00:00 Last Admin: 12/24/17 06:13 Dose: Not Given Insulin Detemir (Levemir Insulin) 10 units SUBQ QAM COUNT INCLUDES THE [facility]; Protocol Stop: 02/21/18 08:59 Last Admin: 12/23/17 08:37 Dose: 10 unit Lorazepam (Ativan) 1 mg PO Q1H PRN; Protocol PRN Reason: Agitation Stop: 02/20/18 20:37 Last Admin: 12/23/17 23:29 Dose: 1 mg Magnesium Hydroxide (Milk Of Magnesia) 30 ml PO DAILY PRN PRN Reason: BOWEL [employer]INTE[employer]CE Stop: 02/20/18 22:45 Rivaroxaban (Xarelto) 15 mg PO BID MARY Stop: 02/21/18 16:59 Last Admin: 12/24/17 08:18 Dose: 15 mg Tamsulosin HCl (Flomax) 0.4 mg PO HS MARY Stop: 02/21/18 20:59 Last Admin: 12/23/17 20:01 Dose: 0.4 mg General: Alert, Other (Confused, agitated at moments) HEENT: Atraumatic Neck: Supple Cardiovascular: Other (Tachicardic) Lungs: Clear to auscultation Abdomen: Bowel sounds, Soft Extremities: Other (Contraction of left arm, limited movement of lower extremities) Psych/Mental Status: Other (Patient is awake, agitated, screming,) Assessment/Plan - Problem List Patient Problems: All Active Problems AGITATION AND DEPRESSION (Acute) - Assessment Assessment: Current Active Problems Problem Status Onset AGITATION AND DEPRESSION Acute Patient is awake, cam in no acute distress. Troponin improved, BNP improving, Chest CT shows lung infiltration, No PE. Dx: A-Fib, CT, CHF exacerbation, Anxiety, pacemaker in place. - Plan Plan: Patient is in IV NS, Carvedilol, Xarelto, Captopril, Insulin sliding scale, Lasix, continue with SNF meds. Already seen by Cardiology and IM. Will continue to monitor.
--- NOTE | 2017-12-24 09:05 | Diagnostic Imaging Report ---
CHEST X-RAY: AP view INDICATION: CHF COMPARISON: 12/22/2017 FINDINGS: Exam is limited due to positioning and overlying external material. Left chest wall pacemaker is stable. Left basal density is noted. No evidence of CHF. Cardiomegaly is noted. IMPRESSION: Limited exam. No evidence of CHF. Left basal density suggestive of a small left effusion. Pneumonia of the left lung base cannot be excluded. Cardiomegaly.
[2017-12-24] MEDS ORDERED: Mag Sulfate 2gm/50mL Premix 2 GM/50 ML BAG IV ONE ×2 (09:07→14:51)
[2017-12-24] MEDS: Levofloxacin 500mg/100mL 500 MG/100 ML BAG IV SCH (09:10)
--- NOTE | 2017-12-24 10:11 | History & Physical ---
ADMIT DATE: 12/23/2017 REFERRING PHYSICIAN: Shay Sánchez M.D. REASON FOR CONSULT: AFib with RVR, elevated troponin level, CHF exacerbation, pneumonia, UTI. HISTORY OF PRESENT ILLNESS: The patient is a 62-year-old gentleman who presented from a long term with increased agitation. While in the ED, he was noted to be AFib with a rate around 150s, troponin level 0.39 and a BNP level of 1490. Other pertinent findings include a chest x-ray showing bilateral basal infiltrates/atelectasis, a UA is consistent with UTI and an elevated D-dimer. Given these findings, the patient has been admitted to the ICU for further management and care. The patient is asleep, but arousable, but is currently not able to provide me any medical history. PAST MEDICAL HISTORY: History of atrial fib/arrhythmia status post pacemaker placement, CAD, hypertension, seizure disorder, history of CVA, Crohn's disease, diabetes mellitus, BPH, and generalized muscle weakness. PAST SURGICAL HISTORY: Pacemaker placement, otherwise unknown. FAMILY HISTORY: Likely noncontributory to this admission. SOCIAL HISTORY: Unknown. He currently lives [facility]. ALLERGIES: NO KNOWN DRUG ALLERGIES. OUTPATIENT MEDICATIONS: Nitroglycerin 0.5 every 5 minutes p.r.n. for chest pain, Paxil 10 every day, Phenergan 1 teaspoon t.i.d. as needed for cough, Tylenol 500 mg t.i.d., Artificial Tears q.i.d., insulin sliding scale with NovoLog R, atorvastatin 10 every day, docusate sodium 100 b.i.d., [place] 5/325 q.6h. p.r.n. for severe pain, Lantus 10 units q.a.m., milk of magnesia 100 mL every day p.r.n., multivitamins every day, Xarelto 10 every day, Flomax 0.4. REVIEW OF SYSTEMS: A full review of systems was not able to be done given that the patient is mostly nonverbal at this time. PHYSICAL EXAMINATION: VITAL SIGNS: Temperature 97.6, pulse 128, BP 119/94, respirations 16, O2 sats 96%-97% on 2 liters. GENERAL: He is a well-developed, thin male, nontoxic appearing. He is asleep, but arousable, not able to answer any questions at this time. HEENT: Normocephalic, appears to be atraumatic. NECK: There is no JVD or LAD. CARDIOVASCULAR: Irregularly irregular rhythm. LUNGS: Scattered rales bilaterally. ABDOMEN: Soft, supple, nontender, nondistended, normoactive bowel sounds. EXTREMITIES: Lower extremities: There is 1+ pitting edema up to the mid shins. NEUROLOGIC: Full exam cannot be done, but there appears to be some contractures noted on the upper extremities. His cranial nerves appear to be within normal limits. LABORATORY DATA: On admission, white count 8.9, H and H 15/48 with a platelet count of 170. INR 1.6. Sodium 134, potassium 3.7, chloride 100, CO2 25, BUN 20, creatinine 1.2, glucose 152, hemoglobin A1c 8.1, calcium 9.0. AST 138, ALT 50, alkaline phosphatase 75. CPK 3237. Troponin 0.39. A followup troponin 0.29. BNP 1490, albumin 3.6. Cholesterol 110, LDL 60, HDL 37. TSH 4.06. UA shows positive for protein, large blood, small bilirubin, small leukocyte esterase, 50-100 RBC, 25-50 wbc. Urine tox was positive for opiates, otherwise within normal limits. Chest x-ray shows left basilar density, which may be due to small left effusion. Pneumonia of the left lung base cannot be excluded. There is also cardiomegaly and a pacemaker noted. CT angiogram of the abdomen and pelvis showed no evidence of PE. There is mild ground glass density in the left base consistent with infiltrates. Trace right pleural effusion with right basal passive atelectasis is also noted. There is cardiomegaly with [id number] size pericardial effusion. A left chest wall pacemaker is noted. Moderate atherosclerotic vascular disease. There is also reflux of intravenous contrast into the IVC, which may be secondary to heart failure. There is a left renal cyst. There is a nonspecific perinephric inflammatory changes. There is a mildly distended gallbladder. No radiopaque gallstones identified. There was also a lower extremity ultrasound done to rule out DVT, which was negative. EKG shows tachycardia at 158. IMPRESSION: 1. Atrial fibrillation with rapid ventricular response. 2. Elevated troponin, likely secondary to atrial fibrillation with rapid ventricular response, but given his history of CAD, will have to rule out acute coronary syndrome. 3. History of CAD/CHF with exacerbation. 4. Bilateral pneumonia/atelectasis. 5. Elevated D-dimer, which is nonspecific, likely secondary to the RVR, but it appears that there is no evidence of pulmonary embolism. 6. Urinary tract infection. 7. History of hypertension, currently out of control. 8. History of seizure disorder. 9. History of CVA. 10. History of type 2 diabetes. 11. History of Crohn's disease. 12. History of BPH. PLAN: The patient has been admitted to ICU for close observation. The patient will be monitored with troponins and CPKs and has been placed on aspirin 81 mg p.o. every day and will be kept on atorvastatin as well as Xarelto. The patient also has been placed on a beta-dereck (Coreg and MIREYA inhibitor) captopril. I will ask for blood cultures and urine C and S. In the interim, the patient will be placed on IV antibiotics for both UTI and pneumonia. Given his elevated BNP level, I will also start the patient on Lasix 40 mg IV daily and a cardiology consult will also be asked for management and care. JOB# [id number] JANNY
[2017-12-24] MEDS ORDERED: MAGNESIUM SULFATE IV ONE (10:15)
--- NOTE | 2017-12-24 16:13 | Cardiology ---
12/24/[address] Sánchez. PROCEDURE: Echocardiogram. M-MODE ECHOCARDIOGRAM: Mitral valve, anterior leaflet of mitral valve shows decreased excursion, EF velocity. Posterior leaflet of mitral valve shows decreased excursion. Left ventricular posterior wall shows increased thickness, decreased excursion. Interventricular septum shows increased thickness, decreased excursion, ejection fraction 40%. Left atrium normal. Aortic root shows normal dimension, normal excursion of aortic leaflets. CONCLUSION: Hypertrophy of the left ventricle, ejection fraction 40%. 2D ECHO: Long axis view shows hypertrophy of the left ventricle, ejection fraction 40%. Left atrium normal. Aortic root shows normal dimension, normal excursion of aortic leaflets. Short axis view of mitral valve normal. Short axis view of aortic valve normal. Apical four chamber view shows hypertrophy of the left ventricle, ejection fraction 40%. Left atrium normal. Right ventricular cavity, right atrium normal, no pericardial effusion. CONCLUSION: Hypertrophy of the left ventricle, ejection fraction 40%. Doppler study shows moderate aortic regurgitation. Right ventricular systolic pressure 30 mmHg. [facility]# [id number]
[2017-12-24] MEDS: Hydrocodone/APAP 5mg/325mg Tab PO PRN (21:58)
[2017-12-25 05:48] LABS: % BASOPHILS 0.4 % (0.0-2.0); % EOSINOPHILS 5.3 % (0.0-5.0); % LYMPHOCYTES 20.3 % (20.0-50.0); % MONOCYTES 12.3 % (2.0-10.0); % NEUTROPHILS 61.7 % (40.0-80.0); EOSINOPHILE ABSOLUTE 0.4 Th/cmm (0.1-0.4); HEMATOCRIT 44.4 % (41.0-60); HEMOGLOBIN 14.6 gm/dL (12-16); LYMPHOCYTE ABSOLUTE 1.5 Th/cmm (1.5-3.0); MEAN CORPUSCULAR HEMOGLOBIN 29.9 pg (26.0-30.0); MEAN CORPUSCULAR HGB CONC 32.8 pg (28.0-36.0); MEAN PLATELET VOLUME 9.3 fl; MONOCYTE ABSOLUTE 0.9 Th/cmm (0.3-1.0); NEUTROPHILE ABSOLUTE 4.5 Th/cmm (1.8-8.0); PLATELET COUNT 202 Th/cmm (150-400); RED BLOOD COUNT 4.88 Mil/cmm (4.30-5.70); RED CELL DISTRIBUTION WIDTH 13.4 % (11.5-20.0); WHITE BLOOD COUNT 7.3 Th/cmm (4.8-10.8)
[2017-12-25] MEDS: INSULIN ASPART SLIDING SCALE 100 UNITS/ML UNIT SUBQ SCH ×3 (06:00→17:32)
[2017-12-25 06:03] LABS: ALB/GLOB RATIO 1.2 (1.0-1.8); ALBUMIN 3.2 gm/dL (4.2-5.5); ANION GAP 9.6 (7.0-16.0); BILIRUBIN,TOTAL 0.9 mg/dL (0.3-1.0); CALCIUM SERUM 8.8 mg/dL (8.6-10.3); CARBON DIOXIDE 30.2 mEq/L (21.0-31.0); CREATININE - SERUM 1.6 mg/dL (0.7-1.3); GFR AFRICAN-AMERICAN 56.4 ml/min (>90); GFR NON AFRICAN-AMERICAN 46.6 ml/min; MAGNESIUM 2.3 mg/dL (1.9-2.7); POTASSIUM SERUM 3.8 mEq/L (3.5-5.1); TOTAL PROTEIN,SERUM 5.8 gm/dL (6.0-8.3)
[2017-12-25] MEDS: Multivitamin w/ Minerals Tab PO SCH (08:38)
[2017-12-25] MEDS: Sodium Chloride 0.9% 1,000 ML IV SCH ×2 (08:39→17:32)
--- NOTE | 2017-12-25 12:25 | General Progress Note ---
Subjective - Review of Systems Service Date: 12/25/17 Subjective: I want a pudding Objective - Results Result Diagrams: 12/25/17 05:10 12/25/17 05:10 Recent Labs: Laboratory Last Values WBC 7.3 Th/cmm (4.8-10.8) 12/25/17 05:10 RBC 4.88 Mil/cmm (4.30-5.70) 12/25/17 05:10 Hgb 14.6 gm/dL (12-16) 12/25/17 05:10 Hct 44.4 % (41.0-60) 12/25/17 05:10 MCV 91.0 fl (80-99) 12/25/17 05:10 MCH 29.9 pg (26.0-30.0) 12/25/17 05:10 MCHC Differential 32.8 pg (28.0-36.0) 12/25/17 05:10 RDW 13.4 % (11.5-20.0) 12/25/17 05:10 Plt Count 202 Th/cmm (150-400) 12/25/17 05:10 MPV 9.3 fl 12/25/17 05:10 Neutrophils % 61.7 % (40.0-80.0) 12/25/17 05:10 Band Neutrophils % 0 % (0-10) 12/22/17 14:50 Lymphocytes % 20.3 % (20.0-50.0) 12/25/17 05:10 Monocytes % 12.3 % (2.0-10.0) H 12/25/17 05:10 Eosinophils % 5.3 % (0.0-5.0) H 12/25/17 05:10 Basophils % 0.4 % (0.0-2.0) 12/25/17 05:10 Neutrophils (Manual) 74 % (40-80) 12/22/17 14:50 Lymphocytes 15 % (20-50) L 12/22/17 14:50 Monocytes 10 % (2-10) 12/22/17 14:50 Eosinophils 1 % (0-5) 12/22/17 14:50 Basophils 0 % (0-3) 12/22/17 14:50 Target Cells 12/22/17 14:50 PT 17.7 SECONDS (9.5-11.5) H 12/22/17 14:50 INR 1.66 (0.5-1.4) H 12/22/17 14:50 D-Dimer 1240 ng/mL (100-400) H 12/22/17 14:50 Sodium 135 mEq/L (136-145) L 12/25/17 05:10 Potassium 3.8 mEq/L (3.5-5.1) 12/25/17 05:10 Chloride 99 mEq/L (98-107) 12/25/17 05:10 Carbon Dioxide 30.2 mEq/L (21.0-31.0) 12/25/17 05:10 Anion Gap 9.6 (7.0-16.0) 12/25/17 05:10 BUN 13 mg/dL (7-25) 12/25/17 05:10 Creatinine 1.6 mg/dL (0.7-1.3) H 12/25/17 05:10 Est GFR ( Amer) 56.4 ml/min (>90) 12/25/17 05:10 Est GFR (Non-Af Amer) 46.6 ml/min 12/25/17 05:10 BUN/Creatinine Ratio 8.1 12/25/17 05:10 Glucose 107 mg/dL (70-105) H 12/25/17 05:10 POC Glucose 116 MG/DL (70 - 105) H 12/25/17 05:17 Hemoglobin A1c % 8.1 % (4.0-6.0) H 12/22/17 14:50 Calcium 8.8 mg/dL (8.6-10.3) 12/25/17 05:10 Magnesium 2.3 mg/dL (1.9-2.7) 12/25/17 05:10 Total Bilirubin 0.9 mg/dL (0.3-1.0) 12/25/17 05:10 AST 92 U/L (13-39) H 12/25/17 05:10 ALT 42 U/L (7-52) 12/25/17 05:10 Alkaline Phosphatase 85 U/L (34-104) 12/25/17 05:10 Creatine Kinase 3237 U/L (30-223) H 12/22/17 14:50 CK-MB (CK-2) 21.8 ng/mL (0.6-6.3) H 12/22/17 14:50 Troponin I 0.29 ng/mL (0.01-0.05) H* D 12/23/17 04:50 B-Natriuretic Peptide 827.0 pg/mL (5.0-100.0) H 12/24/17 04:45 Total Protein 5.8 gm/dL (6.0-8.3) L 12/25/17 05:10 Albumin 3.2 gm/dL (4.2-5.5) L 12/25/17 05:10 Globulin 2.6 gm/dL 12/25/17 05:10 Albumin/Globulin Ratio 1.2 (1.0-1.8) 12/25/17 05:10 Triglycerides 97 mg/dL (<150) 12/22/17 14:50 Cholesterol 110 mg/dL (<200) 12/22/17 14:50 LDL Cholesterol Direct 60 mg/dL (75-193) L 12/22/17 14:50 HDL Cholesterol 37 mg/dL (23-92) 12/22/17 14:50 TSH 4.06 uIU/ml (0.34-5.60) 12/22/17 14:50 Urine Source CLEAN C 12/22/17 16:15 Urine Color YELLOW 12/22/17 16:15 Urine Clarity SLIGHT CLOUDY (CLEAR) 12/22/17 16:15 Urine pH 8.0 (4.6 - 8.0) 12/22/17 16:15 Ur Specific [place] 1.010 (1.005-1.030) 12/22/17 16:15 Urine Protein 100 mg/dL (NEGATIVE) H 12/22/17 16:15 Urine Glucose (UA) NEGATIVE mg/dL (NEGATIVE) 12/22/17 16:15 Urine Ketones NEGATIVE mg/dL (NEGATIVE) 12/22/17 16:15 Urine Blood LARGE (NEGATIVE) H 12/22/17 16:15 Urine Nitrate NEGATIVE (NEGATIVE) 12/22/17 16:15 Urine Bilirubin SMALL (NEGATIVE) H 12/22/17 16:15 Urine Urobilinogen 2.0 E.U./dL (0.2 - 1.0) 12/22/17 16:15 Ur Leukocyte Esterase SMALL (NEGATIVE) H 12/22/17 16:15 Urine RBC 50-100 /hpf (0-5) H 12/22/17 16:15 Urine WBC 25-50 /hpf (0-5) H 12/22/17 16:15 Ur Epithelial Cells OCCASIONAL /lpf (FEW) 12/22/17 16:15 Urine Bacteria FEW /hpf (NONE SEEN) 12/22/17 16:15 Salicylates < 25.0 mg/L (30.0-100.0) L 12/22/17 14:50 Urine Opiates Screen POSITIVE (NEGATIVE) H 12/22/17 16:15 Urine Methadone Screen NEGATIVE (NEGATIVE) 12/22/17 16:15 Acetaminophen < 10.0 ug/mL (10.0-30.0) L 12/22/17 14:50 Ur Barbiturates Screen NEGATIVE (NEGATIVE) 12/22/17 16:15 Ur Tricyclics Screen NEGATIVE (NEGATIVE) 12/22/17 16:15 Ur Phencyclidine Scrn NEGATIVE (NEGATIVE) 12/22/17 16:15 Amphetamines Screen NEGATIVE (NEGATIVE) 12/22/17 16:15 U Methamphetamines Scrn NEGATIVE (NEGATIVE) 12/22/17 16:15 U Benzodiazepines Scrn NEGATIVE (NEGATIVE) 12/22/17 16:15 U Cocaine Metab Screen NEGATIVE (NEGATIVE) 12/22/17 16:15 U Cannabinoids Screen NEGATIVE (NEGATIVE) 12/22/17 16:15 Ethyl Alcohol < 10 mg/dL (0-10) 12/22/17 14:50 RPR NONREACTIVE (NONREACTIVE) 12/22/17 14:50 - Physical Exam Vitals and I&O: Vital Signs Temp 98.0 F 12/25/17 04:00 Pulse 123 12/25/17 08:38 Resp 17 12/25/17 05:51 BP 97/70 12/25/17 08:38 Pulse Ox 99 12/25/17 05:51 Intake & Output 12/24/17 12/25/17 12/25/17 18:59 06:59 18:59 Intake Total 947.5 1800 Output Total 2750 Balance 947.5 -950 Weight (lbs) 60.328 kg Intake: Intake, IV Amount 947.5 1050 Levofloxacin 500mg/100mL 100 500 mg In 100 ml @ 100 mls/hr IV Q24HR [facility] Rx#: [id number] Mag Sulfate 2gm/50mL 25 Premix 1 gm In 25 ml @ 25 mls/hr IV X1 [facility] Rx#: [id number] Sodium Chloride 0.9% 1, 822.5 1000 000 ml @ 75 mls/hr IV . [id number] [facility] Rx#:[id number] cefTRIAXone 1 gm In 50 Dextrose 5% 50 ml @ 100 mls/hr IV Q24H [facility] Rx#: [id number] Oral 750 Output: Urine 2750 Other: # Bowel Movements 0 Weight Source Bedscale Active Medications: Current Medications Acetaminophen (Tylenol) 650 mg PO Q6HR PRN PRN Reason: MILD PAIN Stop: 02/20/18 22:45 Acetaminophen/Hydrocodone Bitart ([place] 5mg/325mg) 1 tab PO Q6H PRN PRN Reason: PAIN Stop: 02/20/18 22:45 Last Admin: 12/24/17 21:58 Dose: 1 tab Amiodarone HCl (Cordarone) 200 mg PO BID [facility] Stop: 02/21/18 16:59 Last Admin: 12/25/17 08:38 Dose: 200 mg Aspirin (Ecotrin) 81 mg PO DAILY [facility] Stop: 02/21/18 09:59 Last Admin: 12/25/17 08:38 Dose: 81 mg Carvedilol (Coreg) 6.25 mg PO BID [facility] Stop: 02/21/18 09:59 Last Admin: 12/25/17 08:38 Dose: Not Given Docusate Sodium (Colace) 100 mg PO BID [facility] Stop: 02/21/18 08:59 Last Admin: 12/25/17 08:37 Dose: 100 mg Furosemide (Lasix) 40 mg IVP DAILY [facility] Stop: 02/21/18 09:59 Last Admin: 12/25/17 08:37 Dose: 40 mg Sodium Chloride (Nacl 0.9%) 1,000 mls @ 75 mls/hr IV .[id number] [facility] Stop: 02/20/18 19:59 Last Admin: 12/25/17 08:39 Dose: 75 mls/hr Ceftriaxone Sodium 1 gm/ (Dextrose) 50 mls @ 100 mls/hr IV Q24H [facility] Stop: 02/22/18 20:59 Last Infusion: 12/24/17 21:11 Dose: Infused Insulin Aspart (Novolog Insulin Sliding Scale) 0 units SUBQ Q6HR [facility]; Protocol Stop: 02/21/18 00:00 Last Admin: 12/25/17 06:00 Dose: Not Given Lorazepam (Ativan) 1 mg PO Q1H PRN; Protocol PRN Reason: Agitation Stop: 02/20/18 20:37 Last Admin: 12/24/17 20:19 Dose: 1 mg Magnesium Hydroxide (Milk Of Magnesia) 30 ml PO DAILY PRN PRN Reason: BOWEL MAINTENACE Stop: 02/20/18 22:45 Rivaroxaban (Xarelto) 15 mg PO BID [facility] Stop: 02/21/18 16:59 Last Admin: 12/25/17 08:38 Dose: 15 mg Tamsulosin HCl (Flomax) 0.4 mg PO HS [facility] Stop: 02/21/18 20:59 Last Admin: 12/24/17 20:19 Dose: 0.4 mg General: Alert, Other (Confused, agitated at moments) HEENT: Atraumatic Neck: Supple Cardiovascular: Regular rate Lungs: Clear to auscultation Abdomen: Bowel sounds, Soft Extremities: Other (Contraction of left arm, limited movement of lower extremities) Neurological: Other (unstable gait) Skin: Other (Warm and dry) Psych/Mental Status: Other (Patient is awake, agitated, screming,) Assessment/Plan - Problem List Patient Problems: All Active Problems AGITATION AND DEPRESSION (Acute) - Assessment Assessment: Current Active Problems Problem Status Onset AGITATION AND DEPRESSION Acute Patient is awake, cam in no acute distress. Heart rate control improving Dx: A- Fib, [place], CHF exacerbation, Anxiety, pacemaker in place. - Plan Plan: Patient is in IV NS, Carvedilol, Xarelto, Captopril, Insulin sliding scale, Lasix, continue with SNF meds. Already seen by Cardiology and IM. Patient is transferred to Telemetry. Will continue to monitor. Nutritional Asmnt/Malnutr-PDOC - Dietary Evaluation Malnutrition Findings (Please click <Entered> for more info): Nutritional Asmnt/Malnutrition Start: 12/25/17 10: 44 Text: Status: Active Freq: Protocol: Document 12/25/17 10:44 [facility] (Rec: 12/25/17 11:03 [id number] [email or web address]) Nutritional Asmnt/Malnutrition Patient General Information Nutritional Screening Moderate Risk Diagnosis A Fib NSTEMI, Anxiety Pertinent Medical Hx/Surgical Hx CAD, HTN, Seizure, Anxiety, DM , Chronic armas catheter use, Crohn's disease(?) Subjective Information Patient sent to ER from SNF Variable intake since admission - 25-100% per EMR, total assist Current Diet Order/ Nutrition Support Low sodium CCHO Patient / S.O Not Indicated Pertinent Medications Colace, lasix, novolog, MOM, NaCl 0.9% Pertinent Labs BUN 13, Cre 1.6, eGFR < 60, Glu 107, POC Gluc 95-178, Alb 3.2 Nutritional Hx/Data Height 1.68 m Height (Calculated Centimeters) 167.6 Current Weight (lbs) 60.328 kg Weight (Calculated Kilograms) 60.3 Weight (Calculated Grams) 97300.8 [place] Body Weight 142 % [place] Body Weight 94 Body Mass Index (BMI) 21.4 Weight Status Approriate GI Symptoms Cultural/Ethnic/Church Belief unknown Usual diet at home unknown Skin Integrity/Comment: Bilateral shins have dry abrasions; 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 Problem Problem Inadequate PO intake Etiology patient requiring total feed assist Signs/Symptoms: variable PO intake 25-75% per EMR 1. Problem Problem Decreased protein needs Etiology renal insufficiency not on dialysis Signs/Symptoms: creatinine 1.6, eGFr <60 Intervention/Recommendation Comments 1. Recommend changing diet from low sodium CCHO to renal CHO. 2. Nursing to continue to provide feed assist with all meals to ensure adequate/ improved PO intake. Expected Outcomes/Goals Expected Outcomes/Goals Goal: PO intake to meet at least 75% of nutritional needs . Monitor PO intake, wt, labs and skin integrity F/U as moderate risk in 3-5 days, 12/28-12/30
[2017-12-26] MEDS: INSULIN ASPART SLIDING SCALE 100 UNITS/ML UNIT SUBQ SCH ×4 (01:00→18:20)
[2017-12-26 06:29] LABS: % EOSINOPHILS 4.2 % (0.0-5.0); % LYMPHOCYTES 24.9 % (20.0-50.0); % MONOCYTES 11.2 % (2.0-10.0); % NEUTROPHILS 59.7 % (40.0-80.0); EOSINOPHILE ABSOLUTE 0.3 Th/cmm (0.1-0.4); HEMATOCRIT 37.4 % (41.0-60); HEMOGLOBIN 12.5 gm/dL (12-16); LYMPHOCYTE ABSOLUTE 1.5 Th/cmm (1.5-3.0); MEAN CELL VOLUME 90.7 fl (80-99); MEAN CORPUSCULAR HEMOGLOBIN 30.5 pg (26.0-30.0); MEAN CORPUSCULAR HGB CONC 33.6 pg (28.0-36.0); MEAN PLATELET VOLUME 9.1 fl; MONOCYTE ABSOLUTE 0.7 Th/cmm (0.3-1.0); NEUTROPHILE ABSOLUTE 3.5 Th/cmm (1.8-8.0); PLATELET COUNT 180 Th/cmm (150-400); RED BLOOD COUNT 4.12 Mil/cmm (4.30-5.70); RED CELL DISTRIBUTION WIDTH 13.2 % (11.5-20.0)
[2017-12-26 07:02] LABS: ALB/GLOB RATIO 1.2 (1.0-1.8); ALBUMIN 2.2 gm/dL (4.2-5.5); ALKALINE PHOSPHATASE 58 U/L (34-104); ANION GAP 9.3 (7.0-16.0); BILIRUBIN,TOTAL 0.7 mg/dL (0.3-1.0); BUN - UREA NITROGEN 10 mg/dL (7-25); CARBON DIOXIDE 22.4 mEq/L (21.0-31.0); CHLORIDE 110 mEq/L (98-107); GFR AFRICAN-AMERICAN > 60.0 ml/min (>90); GFR NON AFRICAN-AMERICAN > 60.0 ml/min; GLUCOSE 98 mg/dL (70-105); SGOT 54 U/L (13-39); SGPT/ALT 26 U/L (7-52); SODIUM SERUM 139 mEq/L (136-145)
[2017-12-26 07:36] LABS: CALCIUM SERUM 5.8 mg/dL (8.6-10.3); POTASSIUM SERUM 2.7 mEq/L (3.5-5.1)
[2017-12-26] MEDS ORDERED: Potassium Chloride 40 MEQ, Lidocaine 1% 20mL Vial 25 MG in Sodium Chloride 0.9% 250 ML IV ONE (07:53)
--- NOTE | 2017-12-26 09:19 | Diagnostic Imaging Report ---
CHEST X-RAY: AP view INDICATION: Pleural effusion COMPARISON: 12/24/2017 FINDINGS: Left chest wall pacemaker is stable. Left basal density is noted. Cardiomegaly is noted with atherosclerosis. IMPRESSION: Probable small left pleural effusion. Pneumonia of the left lung base cannot be excluded. Cardiomegaly and atherosclerotic vascular disease.
--- NOTE | 2017-12-26 09:44 | General Progress Note ---
Subjective - Review of Systems Service Date: 12/26/17 Subjective: I am OK. Objective - Results Result Diagrams: 12/26/17 06:10 12/26/17 06:10 Recent Labs: Laboratory Last Values WBC 6.0 Th/cmm (4.8-10.8) 12/26/17 06:10 RBC 4.12 Mil/cmm (4.30-5.70) L 12/26/17 06:10 Hgb 12.5 gm/dL (12-16) 12/26/17 06:10 Hct 37.4 % (41.0-60) L 12/26/17 06:10 MCV 90.7 fl (80-99) 12/26/17 06:10 MCH 30.5 pg (26.0-30.0) H 12/26/17 06:10 MCHC Differential 33.6 pg (28.0-36.0) 12/26/17 06:10 RDW 13.2 % (11.5-20.0) 12/26/17 06:10 Plt Count 180 Th/cmm (150-400) 12/26/17 06:10 MPV 9.1 fl 12/26/17 06:10 Neutrophils % 59.7 % (40.0-80.0) 12/26/17 06:10 Band Neutrophils % 0 % (0-10) 12/22/17 14:50 Lymphocytes % 24.9 % (20.0-50.0) 12/26/17 06:10 Monocytes % 11.2 % (2.0-10.0) H 12/26/17 06:10 Eosinophils % 4.2 % (0.0-5.0) 12/26/17 06:10 Basophils % 0.0 % (0.0-2.0) 12/26/17 06:10 Neutrophils (Manual) 74 % (40-80) 12/22/17 14:50 Lymphocytes 15 % (20-50) L 12/22/17 14:50 Monocytes 10 % (2-10) 12/22/17 14:50 Eosinophils 1 % (0-5) 12/22/17 14:50 Basophils 0 % (0-3) 12/22/17 14:50 Target Cells 12/22/17 14:50 PT 17.7 SECONDS (9.5-11.5) H 12/22/17 14:50 INR 1.66 (0.5-1.4) H 12/22/17 14:50 D-Dimer 1240 ng/mL (100-400) H 12/22/17 14:50 Sodium 139 mEq/L (136-145) 12/26/17 06:10 Potassium 2.7 mEq/L (3.5-5.1) L* D 12/26/17 06:10 Chloride 110 mEq/L (98-107) H 12/26/17 06:10 Carbon Dioxide 22.4 mEq/L (21.0-31.0) 12/26/17 06:10 Anion Gap 9.3 (7.0-16.0) 12/26/17 06:10 BUN 10 mg/dL (7-25) 12/26/17 06:10 Creatinine 1.0 mg/dL (0.7-1.3) 12/26/17 06:10 Est GFR ( Amer) > 60.0 ml/min (>90) 12/26/17 06:10 Est GFR (Non-Af Amer) > 60.0 ml/min 12/26/17 06:10 BUN/Creatinine Ratio 10.0 12/26/17 06:10 Glucose 98 mg/dL (70-105) 12/26/17 06:10 POC Glucose 153 MG/DL (70 - 105) H 12/25/17 17:10 Hemoglobin A1c % 8.1 % (4.0-6.0) H 12/22/17 14:50 Calcium 5.8 mg/dL (8.6-10.3) L* 12/26/17 06:10 Magnesium 2.3 mg/dL (1.9-2.7) 12/25/17 05:10 Total Bilirubin 0.7 mg/dL (0.3-1.0) 12/26/17 06:10 AST 54 U/L (13-39) H 12/26/17 06:10 ALT 26 U/L (7-52) 12/26/17 06:10 Alkaline Phosphatase 58 U/L (34-104) 12/26/17 06:10 Creatine Kinase 3237 U/L (30-223) H 12/22/17 14:50 CK-MB (CK-2) 21.8 ng/mL (0.6-6.3) H 12/22/17 14:50 Troponin I 0.19 ng/mL (0.01-0.05) H* D 12/26/17 06:10 B-Natriuretic Peptide 338.0 pg/mL (5.0-100.0) H 12/26/17 06:10 Total Protein 4.0 gm/dL (6.0-8.3) L 12/26/17 06:10 Albumin 2.2 gm/dL (4.2-5.5) L 12/26/17 06:10 Globulin 1.8 gm/dL 12/26/17 06:10 Albumin/Globulin Ratio 1.2 (1.0-1.8) 12/26/17 06:10 Triglycerides 97 mg/dL (<150) 12/22/17 14:50 Cholesterol 110 mg/dL (<200) 12/22/17 14:50 LDL Cholesterol Direct 60 mg/dL (75-193) L 12/22/17 14:50 HDL Cholesterol 37 mg/dL (23-92) 12/22/17 14:50 TSH 4.06 uIU/ml (0.34-5.60) 12/22/17 14:50 Urine Source CLEAN C 12/22/17 16:15 Urine Color YELLOW 12/22/17 16:15 Urine Clarity SLIGHT CLOUDY (CLEAR) 12/22/17 16:15 Urine pH 8.0 (4.6 - 8.0) 12/22/17 16:15 Ur Specific [place] 1.010 (1.005-1.030) 12/22/17 16:15 Urine Protein 100 mg/dL (NEGATIVE) H 12/22/17 16:15 Urine Glucose (UA) NEGATIVE mg/dL (NEGATIVE) 12/22/17 16:15 Urine Ketones NEGATIVE mg/dL (NEGATIVE) 12/22/17 16:15 Urine Blood LARGE (NEGATIVE) H 12/22/17 16:15 Urine Nitrate NEGATIVE (NEGATIVE) 12/22/17 16:15 Urine Bilirubin SMALL (NEGATIVE) H 12/22/17 16:15 Urine Urobilinogen 2.0 E.U./dL (0.2 - 1.0) 12/22/17 16:15 Ur Leukocyte Esterase SMALL (NEGATIVE) H 12/22/17 16:15 Urine RBC 50-100 /hpf (0-5) H 12/22/17 16:15 Urine WBC 25-50 /hpf (0-5) H 12/22/17 16:15 Ur Epithelial Cells OCCASIONAL /lpf (FEW) 12/22/17 16:15 Urine Bacteria FEW /hpf (NONE SEEN) 12/22/17 16:15 Salicylates < 25.0 mg/L (30.0-100.0) L 12/22/17 14:50 Urine Opiates Screen POSITIVE (NEGATIVE) H 12/22/17 16:15 Urine Methadone Screen NEGATIVE (NEGATIVE) 12/22/17 16:15 Acetaminophen < 10.0 ug/mL (10.0-30.0) L 12/22/17 14:50 Ur Barbiturates Screen NEGATIVE (NEGATIVE) 12/22/17 16:15 Ur Tricyclics Screen NEGATIVE (NEGATIVE) 12/22/17 16:15 Ur Phencyclidine Scrn NEGATIVE (NEGATIVE) 12/22/17 16:15 Amphetamines Screen NEGATIVE (NEGATIVE) 12/22/17 16:15 U Methamphetamines Scrn NEGATIVE (NEGATIVE) 12/22/17 16:15 U Benzodiazepines Scrn NEGATIVE (NEGATIVE) 12/22/17 16:15 U Cocaine Metab Screen NEGATIVE (NEGATIVE) 12/22/17 16:15 U Cannabinoids Screen NEGATIVE (NEGATIVE) 12/22/17 16:15 Ethyl Alcohol < 10 mg/dL (0-10) 12/22/17 14:50 RPR NONREACTIVE (NONREACTIVE) 12/22/17 14:50 - Physical Exam Vitals and I&O: Vital Signs Temp 97.5 F 12/26/17 04:00 Pulse 94 12/26/17 04:00 Resp 14 12/26/17 04:00 BP 115/73 12/26/17 04:00 Pulse Ox 95 12/26/17 04:00 Intake & Output 12/25/17 12/26/17 12/26/17 18:59 06:59 18:59 Intake Total 1066.25 250 Output Total 2000 650 Balance -933.75 -400 Weight (lbs) 60.827 kg 58.06 kg Intake: Intake, IV Amount 666.25 50 Sodium Chloride 0.9% 1, 666.25 000 ml @ 75 mls/hr IV . [id number] [facility] Rx#:[id number] cefTRIAXone 1 gm In 50 Dextrose 5% 50 ml @ 100 mls/hr IV Q24H [facility] Rx#: [id number] Oral 400 200 Output: Urine 2000 650 Other: # Bowel Movements 0 Weight Source Bedscale Bedscale Active Medications: Current Medications Acetaminophen (Tylenol) 650 mg PO Q6HR PRN PRN Reason: MILD PAIN Stop: 02/20/18 22:45 Acetaminophen/Hydrocodone Bitart ([place] 5mg/325mg) 1 tab PO Q6H PRN PRN Reason: PAIN Stop: 02/20/18 22:45 Last Admin: 12/24/17 21:58 Dose: 1 tab Amiodarone HCl (Cordarone) 200 mg PO BID [facility] Stop: 02/21/18 16:59 Last Admin: 12/25/17 17:31 Dose: 200 mg Aspirin (Ecotrin) 81 mg PO DAILY [facility] Stop: 02/21/18 09:59 Last Admin: 12/25/17 08:38 Dose: 81 mg Atorvastatin Calcium (Lipitor) 10 mg PO DAILY [facility]; Protocol Stop: 02/24/18 08:59 Calcium Carbonate (Calcium Carb) 650 mg PO Q8HR [facility] Stop: 02/24/18 12:59 Carvedilol (Coreg) 6.25 mg PO BID [facility] Stop: 02/21/18 09:59 Last Admin: 12/25/17 16:55 Dose: Not Given Docusate Sodium (Colace) 100 mg PO BID [facility] Stop: 02/21/18 08:59 Last Admin: 12/25/17 17:31 Dose: 100 mg Furosemide (Lasix) 40 mg IVP DAILY [facility] Stop: 02/21/18 09:59 Last Admin: 12/25/17 08:37 Dose: 40 mg Sodium Chloride (Nacl 0.9%) 1,000 mls @ 75 mls/hr IV .[id number] [facility] Stop: 02/20/18 19:59 Last Admin: 12/25/17 17:32 Dose: 75 mls/hr Ceftriaxone Sodium 1 gm/ (Dextrose) 50 mls @ 100 mls/hr IV Q24H [facility] Stop: 02/22/18 20:59 Last Infusion: 12/25/17 21:16 Dose: Infused Potassium Chloride 40 meq/Lidocaine HCl 25 mg/ Sodium Chloride 272.5 mls @ 68 mls/hr IV X1 [facility] Stop: 12/26/17 11:53 Potassium Chloride (Potassium Chloride) 20 meq in 100 mls @ 50 mls/hr IV Q2H [facility] Stop: 12/26/17 12:29 Insulin Aspart (Novolog Insulin Sliding Scale) 0 units SUBQ Q6HR [facility]; Protocol Stop: 02/21/18 00:00 Last Admin: 12/26/17 06:00 Dose: Not Given Lorazepam (Ativan) 1 mg PO Q1H PRN; Protocol PRN Reason: Agitation Stop: 02/20/18 20:37 Last Admin: 12/24/17 20:19 Dose: 1 mg Magnesium Hydroxide (Milk Of Magnesia) 30 ml PO DAILY PRN PRN Reason: BOWEL MAINTENACE Stop: 02/20/18 22:45 Rivaroxaban (Xarelto) 15 mg PO BID [facility] Stop: 02/21/18 16:59 Last Admin: 12/25/17 17:31 Dose: 15 mg Tamsulosin HCl (Flomax) 0.4 mg PO HS [facility] Stop: 02/21/18 20:59 Last Admin: 12/25/17 20:47 Dose: 0.4 mg General: Alert, Other (Confused, agitated at moments) HEENT: Atraumatic Neck: Supple Cardiovascular: Regular rate Lungs: Clear to auscultation Abdomen: Bowel sounds, Soft Extremities: Other (Contraction of left arm, limited movement of lower extremities) Neurological: Other (unstable gait) Skin: Other (Warm and dry) Psych/Mental Status: Other (Patient is awake, agitated, screming,) Assessment/Plan - Problem List Patient Problems: All Active Problems AGITATION AND DEPRESSION (Acute) - Assessment Assessment: Current Active Problems Problem Status Onset AGITATION AND DEPRESSION Acute Patient is awake, cam in no acute distress. K low, Creatinine normal, BNP and Troponin improving. Yesterday patient had a V-tack for 8 seconds. Dx: A-Fib, [place] , CHF exacerbation, Anxiety, pacemaker in place. - Plan Plan: Patient is in IV NS, Carvedilol, Xarelto, Captopril, Insulin sliding scale, Lasix, continue with SNF meds, K replaced, calcium added to treatment. Already seen by Cardiology and IM. Patient improving. Will continue to monitor. Nutritional Asmnt/Malnutr-PDOC - Dietary Evaluation Malnutrition Findings (Please click <Entered> for more info): Nutritional Asmnt/Malnutrition Start: 12/25/17 10: 44 Text: Status: Complete Freq: Protocol: Document 12/25/17 10:44 [facility] (Rec: 12/25/17 11:03 [facility] [email or web address]) Nutritional Asmnt/Malnutrition Patient General Information Nutritional Screening Moderate Risk Diagnosis A Fib NSTEMI, Anxiety Pertinent Medical Hx/Surgical Hx CAD, HTN, Seizure, Anxiety, DM , Chronic armas catheter use, Crohn's disease(?) Subjective Information Patient sent to ER from SNF Variable intake since admission - 25-100% per EMR, total assist. Patient is seen sleeping in ICU. Per RN, patient only wants pudding and OJ; refuses other foods. Current Diet Order/ Nutrition Support Low sodium CCHO Patient / S.O Not Indicated Pertinent Medications Colace, lasix, novolog, MOM, NaCl 0.9% Pertinent Labs BUN 13, Cre 1.6, eGFR < 60, Glu 107, POC Gluc 95-178, Alb 3.2 Nutritional Hx/Data Height 1.68 m Height (Calculated Centimeters) 167.6 Current Weight (lbs) 60.328 kg Weight (Calculated Kilograms) 60.3 Weight (Calculated Grams) 87815.8 [place] Body Weight 142 % [place] Body Weight 94 Body Mass Index (BMI) 21.4 Weight Status Approriate GI Symptoms GI Symptoms None Difficult in: None Cultural/Ethnic/[employer] Belief unknown Usual diet at home unknown Skin Integrity/Comment: Bilateral shins have dry abrasions; 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 Problem Problem Inadequate PO intake Etiology patient requiring total feed assist Signs/Symptoms: variable PO intake 25-75% per EMR 1. Problem Problem Decreased protein needs Etiology renal insufficiency not on dialysis Signs/Symptoms: creatinine 1.6, eGFr <60 Intervention/Recommendation Comments 1. Recommend changing diet from low sodium CCHO to renal CHO. 2. Nursing to continue to provide feed assist with all meals to ensure adequate/ improved PO intake. Expected Outcomes/Goals Expected Outcomes/Goals Goal: PO intake to meet at least 75% of nutritional needs . Monitor PO intake, wt, labs and skin integrity F/U as moderate risk in 3-5 days, 12/28-12/30
[2017-12-26] MEDS: KCL 20mEq/100mL Premix 20 MEQ/100 ML PIGGYBACK IV SCH ×2 (10:16→16:40)
[2017-12-26] MEDS: Multivitamin w/ Minerals Tab PO SCH (10:16)
[2017-12-26] MEDS: Atorvastatin Calcium 10 MG TAB PO SCH (10:17)
[2017-12-26] MEDS ORDERED: Potassium Chloride 20 mEq ER Tab PO ONE (14:37)
[2017-12-26] MEDS ORDERED: KCL 20mEq/100mL Premix 20 MEQ/100 ML PIGGYBACK IV ONE (16:00)
[2017-12-27] MEDS: INSULIN ASPART SLIDING SCALE 100 UNITS/ML UNIT SUBQ SCH ×4 (00:46→18:04)
[2017-12-27] MEDS: Multivitamin w/ Minerals Tab PO SCH (08:31)
[2017-12-27] MEDS: Atorvastatin Calcium 10 MG TAB PO SCH (08:31)
--- NOTE | 2017-12-27 08:39 | General Progress Note ---
Subjective - Review of Systems Service Date: 12/27/17 Subjective: I want get out here. Objective - Results Result Diagrams: 12/26/17 06:10 12/26/17 06:10 Recent Labs: Laboratory Last Values WBC 6.0 Th/cmm (4.8-10.8) 12/26/17 06:10 RBC 4.12 Mil/cmm (4.30-5.70) L 12/26/17 06:10 Hgb 12.5 gm/dL (12-16) 12/26/17 06:10 Hct 37.4 % (41.0-60) L 12/26/17 06:10 MCV 90.7 fl (80-99) 12/26/17 06:10 MCH 30.5 pg (26.0-30.0) H 12/26/17 06:10 MCHC Differential 33.6 pg (28.0-36.0) 12/26/17 06:10 RDW 13.2 % (11.5-20.0) 12/26/17 06:10 Plt Count 180 Th/cmm (150-400) 12/26/17 06:10 MPV 9.1 fl 12/26/17 06:10 Neutrophils % 59.7 % (40.0-80.0) 12/26/17 06:10 Band Neutrophils % 0 % (0-10) 12/22/17 14:50 Lymphocytes % 24.9 % (20.0-50.0) 12/26/17 06:10 Monocytes % 11.2 % (2.0-10.0) H 12/26/17 06:10 Eosinophils % 4.2 % (0.0-5.0) 12/26/17 06:10 Basophils % 0.0 % (0.0-2.0) 12/26/17 06:10 Neutrophils (Manual) 74 % (40-80) 12/22/17 14:50 Lymphocytes 15 % (20-50) L 12/22/17 14:50 Monocytes 10 % (2-10) 12/22/17 14:50 Eosinophils 1 % (0-5) 12/22/17 14:50 Basophils 0 % (0-3) 12/22/17 14:50 Target Cells 12/22/17 14:50 PT 17.7 SECONDS (9.5-11.5) H 12/22/17 14:50 INR 1.66 (0.5-1.4) H 12/22/17 14:50 D-Dimer 1240 ng/mL (100-400) H 12/22/17 14:50 Sodium 139 mEq/L (136-145) 12/26/17 06:10 Potassium 2.7 mEq/L (3.5-5.1) L* D 12/26/17 06:10 Chloride 110 mEq/L (98-107) H 12/26/17 06:10 Carbon Dioxide 22.4 mEq/L (21.0-31.0) 12/26/17 06:10 Anion Gap 9.3 (7.0-16.0) 12/26/17 06:10 BUN 10 mg/dL (7-25) 12/26/17 06:10 Creatinine 1.0 mg/dL (0.7-1.3) 12/26/17 06:10 Est GFR ( Amer) > 60.0 ml/min (>90) 12/26/17 06:10 Est GFR (Non-Af Amer) > 60.0 ml/min 12/26/17 06:10 BUN/Creatinine Ratio 10.0 12/26/17 06:10 Glucose 98 mg/dL (70-105) 12/26/17 06:10 POC Glucose 153 MG/DL (70 - 105) H 12/25/17 17:10 Hemoglobin A1c % 8.1 % (4.0-6.0) H 12/22/17 14:50 Calcium 5.8 mg/dL (8.6-10.3) L* 12/26/17 06:10 Magnesium 2.3 mg/dL (1.9-2.7) 12/25/17 05:10 Total Bilirubin 0.7 mg/dL (0.3-1.0) 12/26/17 06:10 AST 54 U/L (13-39) H 12/26/17 06:10 ALT 26 U/L (7-52) 12/26/17 06:10 Alkaline Phosphatase 58 U/L (34-104) 12/26/17 06:10 Creatine Kinase 3237 U/L (30-223) H 12/22/17 14:50 CK-MB (CK-2) 21.8 ng/mL (0.6-6.3) H 12/22/17 14:50 Troponin I 0.19 ng/mL (0.01-0.05) H* D 12/26/17 06:10 B-Natriuretic Peptide 338.0 pg/mL (5.0-100.0) H 12/26/17 06:10 Total Protein 4.0 gm/dL (6.0-8.3) L 12/26/17 06:10 Albumin 2.2 gm/dL (4.2-5.5) L 12/26/17 06:10 Globulin 1.8 gm/dL 12/26/17 06:10 Albumin/Globulin Ratio 1.2 (1.0-1.8) 12/26/17 06:10 Triglycerides 97 mg/dL (<150) 12/22/17 14:50 Cholesterol 110 mg/dL (<200) 12/22/17 14:50 LDL Cholesterol Direct 60 mg/dL (75-193) L 12/22/17 14:50 HDL Cholesterol 37 mg/dL (23-92) 12/22/17 14:50 TSH 4.06 uIU/ml (0.34-5.60) 12/22/17 14:50 Urine Source CLEAN C 12/22/17 16:15 Urine Color YELLOW 12/22/17 16:15 Urine Clarity SLIGHT CLOUDY (CLEAR) 12/22/17 16:15 Urine pH 8.0 (4.6 - 8.0) 12/22/17 16:15 Ur Specific [place] 1.010 (1.005-1.030) 12/22/17 16:15 Urine Protein 100 mg/dL (NEGATIVE) H 12/22/17 16:15 Urine Glucose (UA) NEGATIVE mg/dL (NEGATIVE) 12/22/17 16:15 Urine Ketones NEGATIVE mg/dL (NEGATIVE) 12/22/17 16:15 Urine Blood LARGE (NEGATIVE) H 12/22/17 16:15 Urine Nitrate NEGATIVE (NEGATIVE) 12/22/17 16:15 Urine Bilirubin SMALL (NEGATIVE) H 12/22/17 16:15 Urine Urobilinogen 2.0 E.U./dL (0.2 - 1.0) 12/22/17 16:15 Ur Leukocyte Esterase SMALL (NEGATIVE) H 12/22/17 16:15 Urine RBC 50-100 /hpf (0-5) H 12/22/17 16:15 Urine WBC 25-50 /hpf (0-5) H 12/22/17 16:15 Ur Epithelial Cells OCCASIONAL /lpf (FEW) 12/22/17 16:15 Urine Bacteria FEW /hpf (NONE SEEN) 12/22/17 16:15 Salicylates < 25.0 mg/L (30.0-100.0) L 12/22/17 14:50 Urine Opiates Screen POSITIVE (NEGATIVE) H 12/22/17 16:15 Urine Methadone Screen NEGATIVE (NEGATIVE) 12/22/17 16:15 Acetaminophen < 10.0 ug/mL (10.0-30.0) L 12/22/17 14:50 Ur Barbiturates Screen NEGATIVE (NEGATIVE) 12/22/17 16:15 Ur Tricyclics Screen NEGATIVE (NEGATIVE) 12/22/17 16:15 Ur Phencyclidine Scrn NEGATIVE (NEGATIVE) 12/22/17 16:15 Amphetamines Screen NEGATIVE (NEGATIVE) 12/22/17 16:15 U Methamphetamines Scrn NEGATIVE (NEGATIVE) 12/22/17 16:15 U Benzodiazepines Scrn NEGATIVE (NEGATIVE) 12/22/17 16:15 U Cocaine Metab Screen NEGATIVE (NEGATIVE) 12/22/17 16:15 U Cannabinoids Screen NEGATIVE (NEGATIVE) 12/22/17 16:15 Ethyl Alcohol < 10 mg/dL (0-10) 12/22/17 14:50 RPR NONREACTIVE (NONREACTIVE) 12/22/17 14:50 - Physical Exam Vitals and I&O: Vital Signs Temp 96.8 F 12/27/17 08:00 Pulse 118 12/27/17 08:31 Resp 19 12/27/17 08:00 BP 99/65 12/27/17 08:31 Pulse Ox 96 12/27/17 08:00 Intake & Output 12/26/17 12/27/17 12/27/17 18:59 06:59 18:59 Intake Total 350 240 Output Total 2850 750 Balance -2500 -510 Weight (lbs) 58.06 kg 58.06 kg Intake: Oral 350 240 Output: Urine 2850 750 Other: # Voids 1 # Bowel Movements 1 0 Weight Source Bedscale Bedscale Active Medications: Current Medications Acetaminophen (Tylenol) 650 mg PO Q6HR PRN PRN Reason: MILD PAIN Stop: 07/29/18 22:45 Acetaminophen/Hydrocodone Bitart ([place] 5mg/325mg) 1 tab PO Q6H PRN PRN Reason: PAIN Stop: 02/20/18 22:45 Last Admin: 12/24/17 21:58 Dose: 1 tab Amiodarone HCl (Cordarone) 200 mg PO BID [facility] Stop: 02/21/18 16:59 Last Admin: 12/27/17 08:28 Dose: Not Given Aspirin (Ecotrin) 81 mg PO DAILY [facility] Stop: 02/21/18 09:59 Last Admin: 12/27/17 08:31 Dose: Not Given Atorvastatin Calcium (Lipitor) 10 mg PO DAILY [facility]; Protocol Stop: 02/24/18 08:59 Last Admin: 12/27/17 08:31 Dose: Not Given Calcium Carbonate (Calcium Carb) 650 mg PO Q8HR [facility] Stop: 02/24/18 12:59 Last Admin: 12/27/17 05:58 Dose: 650 mg Carvedilol (Coreg) 6.25 mg PO BID [facility] Stop: 02/21/18 09:59 Last Admin: 12/27/17 08:31 Dose: Not Given Docusate Sodium (Colace) 100 mg PO BID [facility] Stop: 02/21/18 08:59 Last Admin: 12/27/17 08:31 Dose: Not Given Furosemide (Lasix) 40 mg IVP DAILY [facility] Stop: 02/21/18 09:59 Last Admin: 12/27/17 08:31 Dose: Not Given Sodium Chloride (Nacl 0.9%) 1,000 mls @ 75 mls/hr IV .[id number] [facility] Stop: 02/20/18 19:59 Last Admin: 12/25/17 17:32 Dose: 75 mls/hr Ceftriaxone Sodium 1 gm/ (Dextrose) 50 mls @ 100 mls/hr IV Q24H [facility] Stop: 02/22/18 20:59 Last Admin: 12/26/17 22:09 Dose: 100 mls/hr Insulin Aspart (Novolog Insulin Sliding Scale) 0 units SUBQ Q6HR [facility]; Protocol Stop: 02/21/18 00:00 Last Admin: 12/27/17 06:03 Dose: Not Given Lorazepam (Ativan) 1 mg PO Q1H PRN; Protocol PRN Reason: Agitation Stop: 02/20/18 20:37 Last Admin: 12/24/17 20:19 Dose: 1 mg Magnesium Hydroxide (Milk Of Magnesia) 30 ml PO DAILY PRN PRN Reason: BOWEL MAINTENACE Stop: 02/20/18 22:45 Rivaroxaban (Xarelto) 15 mg PO BID [facility] Stop: 02/21/18 16:59 Last Admin: 12/27/17 08:32 Dose: Not Given Tamsulosin HCl (Flomax) 0.4 mg PO HS [facility] Stop: 02/21/18 20:59 Last Admin: 12/26/17 22:10 Dose: 0.4 mg General: Alert, Other (Confused, agitated at moments) HEENT: Atraumatic Neck: Supple Cardiovascular: Regular rate Lungs: Clear to auscultation Abdomen: Bowel sounds, Soft Extremities: Other (Contraction of left arm, limited movement of lower extremities) Neurological: Other (unstable gait) Skin: Other (Warm and dry) Psych/Mental Status: Other (Patient is awake, agitated, screming,) Assessment/Plan - Problem List Patient Problems: All Active Problems AGITATION AND DEPRESSION (Acute) - Assessment Assessment: Current Active Problems Problem Status Onset AGITATION AND DEPRESSION Acute Patient is awake, agitated, in no acute distress. Patient refused blood be drawn. He continue bleeding for urinary track. Dx: A-Fib, NM, CHF exacerbation , Anxiety, pacemaker in place, hematuria. - Plan Plan: Patient is in IV NS, Carvedilol, Xarelto, Captopril, Insulin sliding scale, Lasix, continue with SNF meds, Already seen by Cardiology and IM. Consult with Urology requested. Patient improving. Will continue to monitor. Nutritional Asmnt/Malnutr-PDOC - Dietary Evaluation Malnutrition Findings (Please click <Entered> for more info): Nutritional Asmnt/Malnutrition Start: 12/25/17 10: 44 Text: Status: Complete Freq: Protocol: Document 12/25/17 10:44 LL (Rec: 12/25/17 11:03 [facility] [email or web address]) Nutritional Asmnt/Malnutrition Patient General Information Nutritional Screening Moderate Risk Diagnosis A Fib NSTEMI, Anxiety Pertinent Medical Hx/Surgical Hx CAD, HTN, Seizure, Anxiety, DM , Chronic armas catheter use, Crohn's disease(?) Subjective Information Patient sent to ER from SNF Variable intake since admission - 25-100% per EMR, total assist. Patient is seen sleeping in ICU. Per RN, patient only wants pudding and OJ; refuses other foods. Current Diet Order/ Nutrition Support Low sodium CCHO Patient / S.O Not Indicated Pertinent Medications Colace, lasix, novolog, MOM, NaCl 0.9% Pertinent Labs BUN 13, Cre 1.6, eGFR < 60, Glu 107, POC Gluc 95-178, Alb 3.2 Nutritional Hx/Data Height 1.68 m Height (Calculated Centimeters) 167.6 Current Weight (lbs) 60.328 kg Weight (Calculated Kilograms) 60.3 Weight (Calculated Grams) 36793.8 [place] Body Weight 142 % [place] Body Weight 94 Body Mass Index (BMI) 21.4 Weight Status Approriate GI Symptoms GI Symptoms None Difficult in: None Cultural/Ethnic/[place] Belief unknown Usual diet at home unknown Skin Integrity/Comment: Bilateral shins have dry abrasions; 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 Problem Problem Inadequate PO intake Etiology patient requiring total feed assist Signs/Symptoms: variable PO intake 25-75% per EMR 1. Problem Problem Decreased protein needs Etiology renal insufficiency not on dialysis Signs/Symptoms: creatinine 1.6, eGFr <60 Intervention/Recommendation Comments 1. Recommend changing diet from low sodium CCHO to renal CHO. 2. Nursing to continue to provide feed assist with all meals to ensure adequate/ improved PO intake. Expected Outcomes/Goals Expected Outcomes/Goals Goal: PO intake to meet at least 75% of nutritional needs . Monitor PO intake, wt, labs and skin integrity F/U as moderate risk in 3-5 days, 12/28-12/30
--- NOTE | 2017-12-27 09:32 | Diagnostic Imaging Report ---
Ultrasound urinary bladder HISTORY: Hematuria Exam is limited due to incomplete bladder distention. No definite intraluminal abnormalities are seen. There does appear to be enlargement of the prostate gland (approximately 4.7 x 3.7 x 3.8 cm). Encroachment on the floor of the urinary bladder. Suggestion of generalized wall thickening. Liver, this may be at least partially related to the incomplete bladder distention. IMPRESSION: 1. Limited exam due to incomplete bladder distention 2. Questionable bladder wall thickening. This may be related to lack of complete distention. No focal abnormalities are seen. 3. Enlarged prostate gland
[2017-12-27] MEDS ORDERED: Probiotic Screen MC PRN (10:35)
[2017-12-27] MEDS: Lactobacillus Rhamnosus GG 15 Billion CFU CAP.SPRINK PO SCH (12:24)
[2017-12-27] MEDS ORDERED: Potassium Chloride 20 mEq ER Tab PO ONE ×2 (12:58→17:00)
--- NOTE | 2017-12-27 14:43 | Consultation ---
DATE OF CONSULTATION: UROLOGY CONSULTATION REASON FOR CONSULTATION: Seen for gross hematuria. INDICATIONS: The patient is a 62-year-old who was transferred to the floor yesterday from the ICU after several days of being treated for atrial fibrillation and cardiac problems. He had a Velazquez placed during his stay in the ICU that was functioning well, but last night, a nurse found it leaking and took it out and tried to replace it following which the patient started to bleed. Since that time, he has had ongoing gross hematuria, but it has lightened up this morning. Additionally, the patient has been on Xarelto for anticoagulation, which has added to the problem. The patient is unable to provide much of urologic history, but claims he never had prostate surgery and did have some trouble urinating; however, difficult to extract meaningful information from him in this regard. He was taking Flomax before he came to the hospital. He denies prostate surgery, but I cannot get any more information from him about that. MEDICAL HISTORY: [facility]. He has hypertension and hyperlipidemia. He has some kind of disability because of which he is bedridden. 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 He has cardiac arrhythmias. He has a pacemaker and history of coronary artery disease as well. He has a history of stroke and seizure disorder. He has diabetes as well and lastly history of Crohn's disease. SURGICAL HISTORY: Pacemaker placement and G-tube placement. HOME MEDICATIONS: Include Paxil, insulin, Lipitor, [place], Xarelto and Flomax. REVIEW OF SYSTEMS: No seizures recorded in the hospital. No chest pain, coughing or shortness of breath; however, he did have an elevated troponin. He has tolerated G-tube feeding without vomiting or diarrhea and in fact he seems to have constipation. The gross hematuria has started last night and he has been incontinent urinating in a condom catheter. PHYSICAL EXAMINATION: GENERAL: On exam, he is belligerent. He is verbally abusive and refuses quite a bit of his treatment including blood draw and adequate exams. He is yelling and screaming and wanting to know when he will go home. VITAL SIGNS: Temperature 98.6, heart rate 118 regular rhythm, blood pressure 99/65. HEAD AND NECK: Normocephalic. Trachea central. Pupils equal and reactive. No jaundice. Thyroid and lymph nodes not palpable. Carotid bruit absent. CHEST: Symmetrical, occasional rales at the bases. No rhonchi. HEART: Sounds irregular rhythm, occasionally. No murmur. ABDOMEN: Soft, nontender, no organomegaly, mass, or hernia. G-tube in place. Bladder not palpable. GENITALIA: Normal male. Condom catheter draining dark pink urine. RECTAL: Inadequate exam as he does not allow, but I felt a lot of hard stool and could not feel a large prostate. EXTREMITIES: No edema or lymphadenopathy. NEUROLOGIC: Difficult to examine and patient does not move all his limbs very well or normally and has contractures as mentioned earlier. LABORATORY DATA: White count 6000, hemoglobin 12.5 down from 14.6 two days ago, platelets 180. Sodium 139; potassium 2.7, which was replaced this morning. BUN 10, creatinine 1.0, improved from 1.6 two days ago. Calcium is low only 5.8. Troponin 0.19, down from 0.2 on the 31st and down from 0.3 on the 30th. Urine done on admission showed some blood microscopically and some white cells and culture grew out Proteus. Bladder ultrasound this morning showed only 25-30 mL of urine in the bladder with thickening and enlarged prostate measured at about 25-30 grams at the most. Ultrasound of lower extremities, ruled out a DVT. Chest x-ray showed cardiomegaly. Left renal cyst on the other imaging studies, which are not very well defined here. IMPRESSION: Gross hematuria following attempts at Velazquez insertion, most likely traumatic. Fortunately, clearing up on its own. The Xarelto will prolong it somewhat longer, but hopefully will settle down soon since it has improved overnight already. We will defer from instrumenting him again or doing anything at this time except continue his antibiotics, namely ceftriaxone that he is getting and to which the Proteus is sensitive too. He is also getting the Flomax, which should help with his bladder emptying. We may have to hold Xarelto if the bleeding does not improve and after that he may require cystoscopy if he have ongoing issues. Multiple other problems listed earlier including diabetes, atrial fibrillation, elevated troponins, pacemaker status. History of a stroke and seizures as well as a Crohn's disease. Additional risk factors as well. JOB# [id number]
[2017-12-27] MEDS: Sodium Chloride 0.9% 1,000 ML IV SCH (17:42)
[2017-12-28] MEDS: INSULIN ASPART SLIDING SCALE 100 UNITS/ML UNIT SUBQ SCH ×5 (03:01→23:10)
[2017-12-28] MEDS: Sodium Chloride 0.9% 1,000 ML IV SCH ×2 (03:18→12:43)
--- NOTE | 2017-12-28 08:40 | General Progress Note ---
Subjective - Review of Systems Service Date: 12/28/17 Subjective: I want go home Objective - Results Result Diagrams: 12/26/17 06:10 12/26/17 06:10 Recent Labs: Laboratory Last Values WBC 6.0 Th/cmm (4.8-10.8) 12/26/17 06:10 RBC 4.12 Mil/cmm (4.30-5.70) L 12/26/17 06:10 Hgb 12.5 gm/dL (12-16) 12/26/17 06:10 Hct 37.4 % (41.0-60) L 12/26/17 06:10 MCV 90.7 fl (80-99) 12/26/17 06:10 MCH 30.5 pg (26.0-30.0) H 12/26/17 06:10 MCHC Differential 33.6 pg (28.0-36.0) 12/26/17 06:10 RDW 13.2 % (11.5-20.0) 12/26/17 06:10 Plt Count 180 Th/cmm (150-400) 12/26/17 06:10 MPV 9.1 fl 12/26/17 06:10 Neutrophils % 59.7 % (40.0-80.0) 12/26/17 06:10 Band Neutrophils % 0 % (0-10) 12/22/17 14:50 Lymphocytes % 24.9 % (20.0-50.0) 12/26/17 06:10 Monocytes % 11.2 % (2.0-10.0) H 12/26/17 06:10 Eosinophils % 4.2 % (0.0-5.0) 12/26/17 06:10 Basophils % 0.0 % (0.0-2.0) 12/26/17 06:10 Neutrophils (Manual) 74 % (40-80) 12/22/17 14:50 Lymphocytes 15 % (20-50) L 12/22/17 14:50 Monocytes 10 % (2-10) 12/22/17 14:50 Eosinophils 1 % (0-5) 12/22/17 14:50 Basophils 0 % (0-3) 12/22/17 14:50 Target Cells 12/22/17 14:50 PT 17.7 SECONDS (9.5-11.5) H 12/22/17 14:50 INR 1.66 (0.5-1.4) H 12/22/17 14:50 D-Dimer 1240 ng/mL (100-400) H 12/22/17 14:50 Sodium 139 mEq/L (136-145) 12/26/17 06:10 Potassium 2.7 mEq/L (3.5-5.1) L* D 12/26/17 06:10 Chloride 110 mEq/L (98-107) H 12/26/17 06:10 Carbon Dioxide 22.4 mEq/L (21.0-31.0) 12/26/17 06:10 Anion Gap 9.3 (7.0-16.0) 12/26/17 06:10 BUN 10 mg/dL (7-25) 12/26/17 06:10 Creatinine 1.0 mg/dL (0.7-1.3) 12/26/17 06:10 Est GFR ( Amer) > 60.0 ml/min (>90) 12/26/17 06:10 Est GFR (Non-Af Amer) > 60.0 ml/min 12/26/17 06:10 BUN/Creatinine Ratio 10.0 12/26/17 06:10 Glucose 98 mg/dL (70-105) 12/26/17 06:10 POC Glucose 153 MG/DL (70 - 105) H 12/25/17 17:10 Hemoglobin A1c % 8.1 % (4.0-6.0) H 12/22/17 14:50 Calcium 5.8 mg/dL (8.6-10.3) L* 12/26/17 06:10 Magnesium 2.3 mg/dL (1.9-2.7) 12/25/17 05:10 Total Bilirubin 0.7 mg/dL (0.3-1.0) 12/26/17 06:10 AST 54 U/L (13-39) H 12/26/17 06:10 ALT 26 U/L (7-52) 12/26/17 06:10 Alkaline Phosphatase 58 U/L (34-104) 12/26/17 06:10 Creatine Kinase 3237 U/L (30-223) H 12/22/17 14:50 CK-MB (CK-2) 21.8 ng/mL (0.6-6.3) H 12/22/17 14:50 Troponin I 0.19 ng/mL (0.01-0.05) H* D 12/26/17 06:10 B-Natriuretic Peptide 338.0 pg/mL (5.0-100.0) H 12/26/17 06:10 Total Protein 4.0 gm/dL (6.0-8.3) L 12/26/17 06:10 Albumin 2.2 gm/dL (4.2-5.5) L 12/26/17 06:10 Globulin 1.8 gm/dL 12/26/17 06:10 Albumin/Globulin Ratio 1.2 (1.0-1.8) 12/26/17 06:10 Triglycerides 97 mg/dL (<150) 12/22/17 14:50 Cholesterol 110 mg/dL (<200) 12/22/17 14:50 LDL Cholesterol Direct 60 mg/dL (75-193) L 12/22/17 14:50 HDL Cholesterol 37 mg/dL (23-92) 12/22/17 14:50 TSH 4.06 uIU/ml (0.34-5.60) 12/22/17 14:50 Urine Source CLEAN C 12/22/17 16:15 Urine Color YELLOW 12/22/17 16:15 Urine Clarity SLIGHT CLOUDY (CLEAR) 12/22/17 16:15 Urine pH 8.0 (4.6 - 8.0) 12/22/17 16:15 Ur Specific [place] 1.010 (1.005-1.030) 12/22/17 16:15 Urine Protein 100 mg/dL (NEGATIVE) H 12/22/17 16:15 Urine Glucose (UA) NEGATIVE mg/dL (NEGATIVE) 12/22/17 16:15 Urine Ketones NEGATIVE mg/dL (NEGATIVE) 12/22/17 16:15 Urine Blood LARGE (NEGATIVE) H 12/22/17 16:15 Urine Nitrate NEGATIVE (NEGATIVE) 12/22/17 16:15 Urine Bilirubin SMALL (NEGATIVE) H 12/22/17 16:15 Urine Urobilinogen 2.0 E.U./dL (0.2 - 1.0) 12/22/17 16:15 Ur Leukocyte Esterase SMALL (NEGATIVE) H 12/22/17 16:15 Urine RBC 50-100 /hpf (0-5) H 12/22/17 16:15 Urine WBC 25-50 /hpf (0-5) H 12/22/17 16:15 Ur Epithelial Cells OCCASIONAL /lpf (FEW) 12/22/17 16:15 Urine Bacteria FEW /hpf (NONE SEEN) 12/22/17 16:15 Salicylates < 25.0 mg/L (30.0-100.0) L 12/22/17 14:50 Urine Opiates Screen POSITIVE (NEGATIVE) H 12/22/17 16:15 Urine Methadone Screen NEGATIVE (NEGATIVE) 12/22/17 16:15 Acetaminophen < 10.0 ug/mL (10.0-30.0) L 12/22/17 14:50 Ur Barbiturates Screen NEGATIVE (NEGATIVE) 12/22/17 16:15 Ur Tricyclics Screen NEGATIVE (NEGATIVE) 12/22/17 16:15 Ur Phencyclidine Scrn NEGATIVE (NEGATIVE) 12/22/17 16:15 Amphetamines Screen NEGATIVE (NEGATIVE) 12/22/17 16:15 U Methamphetamines Scrn NEGATIVE (NEGATIVE) 12/22/17 16:15 U Benzodiazepines Scrn NEGATIVE (NEGATIVE) 12/22/17 16:15 U Cocaine Metab Screen NEGATIVE (NEGATIVE) 12/22/17 16:15 U Cannabinoids Screen NEGATIVE (NEGATIVE) 12/22/17 16:15 Ethyl Alcohol < 10 mg/dL (0-10) 12/22/17 14:50 RPR NONREACTIVE (NONREACTIVE) 12/22/17 14:50 - Physical Exam Vitals and I&O: Vital Signs Temp 97.8 F 12/28/17 08:00 Pulse 84 12/28/17 08:00 Resp 19 12/28/17 08:00 BP 121/84 12/28/17 08:00 Pulse Ox 96 12/28/17 08:00 Intake & Output 12/27/17 12/28/17 12/28/17 18:59 06:59 18:59 Intake Total 500 720 Output Total 950 Balance -450 720 Weight (lbs) 58.06 kg 58.06 kg Intake: Intake, IV Amount 720 Sodium Chloride 0.9% 1, 720 000 ml @ 75 mls/hr IV . [id number] [facility] Rx#:[id number] Oral 500 Output: Urine 950 Other: # Bowel Movements 0 Stool Characteristics Soft Weight Source Bedscale Estimated Active Medications: Current Medications Acetaminophen (Tylenol) 650 mg PO Q6HR PRN PRN Reason: MILD PAIN Stop: 02/20/18 22:45 Acetaminophen/Hydrocodone Bitart ([place] 5mg/325mg) 1 tab PO Q6H PRN PRN Reason: PAIN Stop: 02/20/18 22:45 Last Admin: 12/24/17 21:58 Dose: 1 tab Amiodarone HCl (Cordarone) 200 mg PO BID [facility] Stop: 02/21/18 16:59 Last Admin: 12/27/17 17:36 Dose: 200 mg Atorvastatin Calcium (Lipitor) 10 mg PO DAILY [facility]; Protocol Stop: 02/24/18 08:59 Last Admin: 12/27/17 08:31 Dose: Not Given Carvedilol (Coreg) 12.5 mg PO BID [facility] Stop: 02/25/18 10:49 Last Admin: 12/27/17 17:36 Dose: 12.5 mg Docusate Sodium (Colace) 100 mg PO BID [facility] Stop: 02/21/18 08:59 Last Admin: 12/27/17 17:36 Dose: 100 mg Furosemide (Lasix) 40 mg IVP DAILY MARY Stop: 02/21/18 09:59 Last Admin: 12/27/17 09:49 Dose: Not Given Sodium Chloride (Nacl 0.9%) 1,000 mls @ 75 mls/hr IV .[id number] [facility] Stop: 02/20/18 19:59 Last Admin: 12/28/17 03:18 Dose: 75 mls/hr Ceftriaxone Sodium 1 gm/ (Dextrose) 50 mls @ 100 mls/hr IV Q24H [facility] Stop: 02/22/18 20:59 Last Admin: 12/28/17 03:19 Dose: 100 mls/hr Insulin Aspart (Novolog Insulin Sliding Scale) 0 units SUBQ Q6HR [facility]; Protocol Stop: 02/21/18 00:00 Last Admin: 12/28/17 05:40 Dose: Not Given Lactobacillus Rhamnosus (Culturelle 15b) 1 each PO DAILY [facility] Stop: 02/25/18 10:59 Last Admin: 12/27/17 12:24 Dose: 1 each Lorazepam (Ativan) 1 mg PO Q1H PRN; Protocol PRN Reason: Agitation Stop: 02/20/18 20:37 Last Admin: 12/24/17 20:19 Dose: 1 mg Magnesium Hydroxide (Milk Of Magnesia) 30 ml PO DAILY PRN PRN Reason: BOWEL MAINTENACE Stop: 02/20/18 22:45 Miscellaneous (Probiotic Screen) 1 ea MC PRN PRN PRN Reason: PROTOCOL Stop: 02/25/18 10:34 Potassium Chloride (Klor-Con) 20 meq PO X1 ONE Stop: 12/28/17 17:01 Potassium Chloride (Klor-Con) 20 meq PO DAILY MARY Stop: 02/26/18 08:59 Rivaroxaban (Xarelto) 15 mg PO BID MARY Stop: 02/21/18 16:59 Last Admin: 12/27/17 17:34 Dose: 15 mg Tamsulosin HCl (Flomax) 0.4 mg PO HS MARY Stop: 02/21/18 20:59 Last Admin: 12/27/17 21:38 Dose: 0.4 mg General: Alert, Other (Confused, agitated at moments) HEENT: Atraumatic Neck: Supple Cardiovascular: Regular rate Lungs: Clear to auscultation Abdomen: Bowel sounds, Soft Extremities: Other (Contraction of left arm, limited movement of lower extremities) Neurological: Other (unstable gait) Skin: Other (Warm and dry) Psych/Mental Status: Other (Patient is awake, agitated at moments) Assessment/Plan - Problem List Patient Problems: All Active Problems AGITATION AND DEPRESSION (Acute) - Assessment Assessment: Current Active Problems Problem Status Onset AGITATION AND DEPRESSION Acute Patient is awake, agitated at moments, in no acute distress. Patient refused blood to be drawn. He continue bleeding for urinary track, he was evaluated by Urology and recommendations are follow. No V-tack reported. Dx: A-Fib, [place], CHF exacerbation, Anxiety, pacemaker in place, hematuria. - Plan Plan: Patient is in IV NS, Carvedilol, Xarelto, Captopril, Insulin sliding scale, Lasix, continue with SNF meds, Already seen by Cardiology, Psychiatry, Urology and IM. Will evaluate transferred to LTAC or send him back to SNF. Will continue to monitor. Nutritional Asmnt/Malnutr-PDOC - Dietary Evaluation Malnutrition Findings (Please click <Entered> for more info): Nutritional Asmnt/Malnutrition Start: 12/25/17 10: 44 Text: Status: Complete Freq: Protocol: Document 12/25/17 10:44 [facility] (Rec: 12/25/17 11:03 [email or web address]) Nutritional Asmnt/Malnutrition Patient General Information Nutritional Screening Moderate Risk Diagnosis A Fib NSTEMI, Anxiety Pertinent Medical Hx/Surgical Hx CAD, HTN, Seizure, Anxiety, DM , Chronic armas catheter use, Crohn's disease(?) Subjective Information Patient sent to ER from SNF Variable intake since admission - 25-100% per EMR, total assist. Patient is seen sleeping in ICU. Per RN, patient only wants pudding and OJ; refuses other foods. Current Diet Order/ Nutrition Support Low sodium CCHO Patient / S.O Not Indicated Pertinent Medications Colace, lasix, novolog, MOM, NaCl 0.9% Pertinent Labs BUN 13, Cre 1.6, eGFR < 60, Glu 107, POC Gluc 95-178, Alb 3.2 Nutritional Hx/Data Height 1.68 m Height (Calculated Centimeters) 167.6 Current Weight (lbs) 60.328 kg Weight (Calculated Kilograms) 60.3 Weight (Calculated Grams) 38154.8 [place] Body Weight 142 % [place] Body Weight 94 Body Mass Index (BMI) 21.4 Weight Status Approriate GI Symptoms GI Symptoms None Difficult in: None Cultural/Ethnic/Cheondoism Belief unknown Usual diet at home unknown Skin Integrity/Comment: Bilateral shins have dry abrasions; Left upper extremity has a flexion contracture per wound care notes Current %PO Poor (25-49%) Estimated Nutritional Goals BEE in Kcals: Using Current wt Calories/Kcals/Kg 25-30 Kcals/Kg Kcals Calculated 1892-8057 Protein: Using Current wt Protein g/k.6-0.8g/Kg Protein Calculated 36-48g/day Fluid: ml 6946-6231 mL/day Nutritional Problem 2. Problem Problem Inadequate PO intake Etiology patient requiring total feed assist Signs/Symptoms: variable PO intake 25-75% per EMR 1. Problem Problem Decreased protein needs Etiology renal insufficiency not on dialysis Signs/Symptoms: creatinine 1.6, eGFr <60 Intervention/Recommendation Comments 1. Recommend changing diet from low sodium CCHO to renal CHO. 2. Nursing to continue to provide feed assist with all meals to ensure adequate/ improved PO intake. Expected Outcomes/Goals Expected Outcomes/Goals Goal: PO intake to meet at least 75% of nutritional needs . Monitor PO intake, wt, labs and skin integrity F/U as moderate risk in 3-5 days, 12/28-12/30
[2017-12-28] MEDS: Atorvastatin Calcium 10 MG TAB PO SCH (10:03)
[2017-12-28] MEDS: Lactobacillus Rhamnosus GG 15 Billion CFU CAP.SPRINK PO SCH (10:03)
[2017-12-28] MEDS: Potassium Chloride 20 mEq ER Tab PO SCH (10:04)
[2017-12-28] MEDS: Multivitamin w/ Minerals Tab PO SCH (10:04)
[2017-12-28 10:07] LABS: % BASOPHILS 0.5 % (0.0-2.0); % EOSINOPHILS 3.1 % (0.0-5.0); % LYMPHOCYTES 25.5 % (20.0-50.0); % MONOCYTES 10.9 % (2.0-10.0); EOSINOPHILE ABSOLUTE 0.2 Th/cmm (0.1-0.4); HEMOGLOBIN 14.8 gm/dL (12-16); LYMPHOCYTE ABSOLUTE 1.7 Th/cmm (1.5-3.0); MEAN CELL VOLUME 91.2 fl (80-99); MEAN CORPUSCULAR HEMOGLOBIN 29.3 pg (26.0-30.0); MEAN CORPUSCULAR HGB CONC 32.1 pg (28.0-36.0); MEAN PLATELET VOLUME 9.9 fl; MONOCYTE ABSOLUTE 0.7 Th/cmm (0.3-1.0); NEUTROPHILE ABSOLUTE 3.9 Th/cmm (1.8-8.0); PLATELET COUNT 216 Th/cmm (150-400); RED BLOOD COUNT 5.04 Mil/cmm (4.30-5.70); RED CELL DISTRIBUTION WIDTH 13.2 % (11.5-20.0); WHITE BLOOD COUNT 6.5 Th/cmm (4.8-10.8)
[2017-12-28 10:15] LABS: ALB/GLOB RATIO 1.2 (1.0-1.8); ALBUMIN 3.2 gm/dL (4.2-5.5); ALKALINE PHOSPHATASE 77 U/L (34-104); ANION GAP 11.9 (7.0-16.0); BUN - UREA NITROGEN 15 mg/dL (7-25); CALCIUM SERUM 8.8 mg/dL (8.6-10.3); CARBON DIOXIDE 26.2 mEq/L (21.0-31.0); CHLORIDE 99 mEq/L (98-107); CREATININE - SERUM 1.3 mg/dL (0.7-1.3); GFR AFRICAN-AMERICAN > 60.0 ml/min (>90); GFR NON AFRICAN-AMERICAN 59.3 ml/min; GLUCOSE 181 mg/dL (70-105); MAGNESIUM 1.6 mg/dL (1.9-2.7); POTASSIUM SERUM 4.1 mEq/L (3.5-5.1); SGOT 48 U/L (13-39); SGPT/ALT 29 U/L (7-52); SODIUM SERUM 133 mEq/L (136-145); TOTAL PROTEIN,SERUM 5.9 gm/dL (6.0-8.3)
[2017-12-28] MEDS: KCL 20mEq/100mL Premix 20 MEQ/100 ML PIGGYBACK IV SCH ×2 (11:55→17:22)
[2017-12-28] MEDS: Hydrocodone/APAP 5mg/325mg Tab PO PRN ×2 (13:17→23:05)
[2017-12-28] MEDS ORDERED: KCL 20mEq/100mL Premix 20 MEQ/100 ML PIGGYBACK IV ONE (16:13)
[2017-12-28] MEDS ORDERED: Potassium Chloride 20 mEq ER Tab PO ONE (17:00)
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
[2017-12-29] MEDS: Hydrocodone/APAP 5mg/325mg Tab PO PRN (04:43)
[2017-12-29 06:10] LABS: % BASOPHILS 0.1 % (0.0-2.0); % EOSINOPHILS 0.4 % (0.0-5.0); % LYMPHOCYTES 11.6 % (20.0-50.0); % MONOCYTES 7.8 % (2.0-10.0); % NEUTROPHILS 80.1 % (40.0-80.0); HEMATOCRIT 41.9 % (41.0-60); HEMOGLOBIN 14.1 gm/dL (12-16); LYMPHOCYTE ABSOLUTE 1.2 Th/cmm (1.5-3.0); MEAN CELL VOLUME 90.4 fl (80-99); MEAN CORPUSCULAR HEMOGLOBIN 30.3 pg (26.0-30.0); MEAN CORPUSCULAR HGB CONC 33.6 pg (28.0-36.0); MEAN PLATELET VOLUME 9.1 fl; MONOCYTE ABSOLUTE 0.8 Th/cmm (0.3-1.0); NEUTROPHILE ABSOLUTE 8.5 Th/cmm (1.8-8.0); PLATELET COUNT 213 Th/cmm (150-400); RED BLOOD COUNT 4.64 Mil/cmm (4.30-5.70); RED CELL DISTRIBUTION WIDTH 13.9 % (11.5-20.0); WHITE BLOOD COUNT 10.5 Th/cmm (4.8-10.8)
[2017-12-29 06:42] LABS: ALB/GLOB RATIO 1.4 (1.0-1.8); ALBUMIN 3.4 gm/dL (4.2-5.5); BILIRUBIN,TOTAL 1.2 mg/dL (0.3-1.0); CALCIUM SERUM 8.9 mg/dL (8.6-10.3); CARBON DIOXIDE 23.1 mEq/L (21.0-31.0); CREATININE - SERUM 1.8 mg/dL (0.7-1.3); GFR AFRICAN-AMERICAN 49.3 ml/min (>90); GFR NON AFRICAN-AMERICAN 40.7 ml/min; MAGNESIUM 1.6 mg/dL (1.9-2.7); POTASSIUM SERUM 5.1 mEq/L (3.5-5.1); TOTAL PROTEIN,SERUM 5.9 gm/dL (6.0-8.3)
[2017-12-29] MEDS: INSULIN ASPART SLIDING SCALE 100 UNITS/ML UNIT SUBQ SCH ×2 (08:15→12:09)
[2017-12-29] MEDS ORDERED: DIGOXIN 0.05 MG/ML PO SCH (09:00)
[2017-12-29] MEDS: Lactobacillus Rhamnosus GG 15 Billion CFU CAP.SPRINK PO SCH (09:20)
[2017-12-29] MEDS: Potassium Chloride 20 mEq ER Tab PO SCH (09:20)
[2017-12-29] MEDS: Multivitamin w/ Minerals Tab PO SCH (09:20)
[2017-12-29] MEDS: Atorvastatin Calcium 10 MG TAB PO SCH (09:21)
[2017-12-29] MEDS ORDERED: Mag Sulfate 2gm/50mL Premix 2 GM/50 ML BAG IV ONE (09:30)
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
[2017-12-29] MEDS: Sodium Chloride 0.9% 1,000 ML IV SCH (12:08)
[2017-12-29] MEDS ORDERED: Sulfamethoxazole/TMP 800/160mg Tab PO SCH (17:00)
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
== END 2017-12-29 13:28 | DRG 280 ==
LOC: ER 14:08 → ICU 16:40 → TELE 12-26 12:45
PROVIDERS: ADMIT General Practice; ATTEND General Practice
DX: I21.9 Acute myocardial infarction, unspecified (principal); J18.9 Pneumonia, unspecified organism; R53.2 Functional quadriplegia; D68.9 Coagulation defect, unspecified; E87.1 Hypo-osmolality and hyponatremia; K50.90 Crohn's disease, unspecified, without complications; N39.0 Urinary tract infection, site not specified; I69.354 Hemiplegia and hemiparesis following cerebral infarction affecting left non-dominant side; I47.2 Ventricular tachycardia; I48.91 Unspecified atrial fibrillation; I50.9 Heart failure, unspecified; F41.9 Anxiety disorder, unspecified; I11.0 Hypertensive heart disease with heart failure; E78.5 Hyperlipidemia, unspecified; I25.9 Chronic ischemic heart disease, unspecified; I25.10 Atherosclerotic heart disease of native coronary artery without angina pectoris; E11.9 Type 2 diabetes mellitus without complications; G40.909 Epilepsy, unspecified, not intractable, without status epilepticus; N40.0 Benign prostatic hyperplasia without lower urinary tract symptoms; F32.9 Major depressive disorder, single episode, unspecified; R31.0 Gross hematuria; Z74.01 Bed confinement status; Z79.4 Long term (current) use of insulin; Z82.49 Family history of ischemic heart disease and other diseases of the circulatory system; Z95.0 Presence of cardiac pacemaker
CPT/HCPCS: 36415-UA; 71045-TC; 71275-TC; 76857-TC; 80053-TC; 80061-TC; 80307; 80320-TC; 80329-TC; 81001-TC; 82550-TC; 82553; 82948-90; 83036-90; 83735-TC; 83880-TC; 84443-TC; 84484-TC; 85007-TC; 85025-TC; 85027-TC; 85379-TC; 85610-TC; 86592-TC; 87086-90; 90799; 93005; 93970-TC-50; 94760; 96374; J0696; J1815; J1940; J1956; J2001; J2060; J3475; J3480; J7030; Z7610